=== PATIENT | male | born 1945 | race African-American/Black ===

== ENCOUNTER 2016-12-07 10:45 | Emergency (ER) | payer MEDICARE, OTHER ==
[~2016-12-07] VITALS: Ht 167.6 cm; Wt 63.0 kg
[~2016-12-07 10:45] MED LIST: AMLO5TAB22 PO; CARV12.52 PO; DICY1TAB26 PO; LEXA5TAB PO; PREV30CA36 PO
[2016-12-07 10:59] VITALS: BP 104/61; PULSE 75; RESP 16; TEMP 97.9; O2SAT 100
--- NOTE | 2016-12-07 11:02 | PD ---
HPI . felt "drunk" and coughed/vomited blood Chief Complaint: cough/vomit blood Time Seen by Provider: 11:02 Travel History International Travel<30 days: No Contact w/Intl Traveler<30days: No Traveled to known affect area: No History of Present Illness HPI 71 yr old male with tobaccoism, HTN and hx of pacemaker here with c/o feeling "drunk" and then having either a coughing up of blood that was bright red and dark coffee looking or either vomiting it. Patient says he can't exactly recall , but became concerned and called [facility] for help. Patient now tells me that he is feeling well. He denies any pain or pain at the moment of this episode. He denies any headache, dizziness or lightheaded feeling. He denies any loss of consciousness or vertigo. I asked patient if he drinks ETOH and he says he only has a beer here and there and doesn't drink daily. He does have a primary care doctor, who he cannot recall the name of. His unit assistant is Dr. Damaris Tao. At the time of examination patient denies any nausea, vomiting, chest pain, shortness of breath, abdominal pain, fever or chills. PFSH Past Medical History Heart Rhythm Problems: Yes Diminished Hearing: No Hypertension: Yes Past Surgical History Appendectomy: Yes Body Medical Devices: PACEMAKER Pacemaker: Yes Social History Alcohol Use: Yes (2/DAY) Tobacco Use: Yes (1 PPD) Substance Use: No Allergies-Medications (Allergen,Severity, Reaction): Coded Allergies: No Known Allergies (Verified , 06/17/14) Reported Meds & Prescriptions Reported Meds & Active Scripts Active Review of Systems General / Constitutional: No: Fever Eyes: No: Visual changes HENT: No: Headaches Cardiovascular: No: Chest Pain or Discomfort Respiratory: Positive: Cough, Hemoptysis, No: Shortness of Breath Gastrointestinal: Positive: Hematemesis (?), No: Abdominal Pain Genitourinary: No: Dysuria Musculoskeletal: No: Pain Skin: No Rash Neurologic: No: Weakness Psychiatric: No: Depression Endocrine: No: Polydipsia Hematologic/Lymphatic: No: Easy Bruising Physical Exam Narrative GENERAL: AAO x 3, no acute distress, Well-nourished, well-developed patient. SKIN: Warm and dry. No visible rashes or bruising. HEAD: Normocephalic and atraumatic. EYES: No scleral icterus. No injection or drainage. EOM intact, PERRLA ENT: No nasal drainage noted. Mucous membranes pink. Airway patent. Moist mucous membranes. Oropharynx without any gross abnormalities. NECK: Supple, trachea midline. No JVD. No lymphadenopathy. CARDIOVASCULAR: Regular rate and rhythm without murmurs, gallops, or rubs. RESPIRATORY: Breath sounds equally diminished bilaterally. There are rhonchi scattered throughout, right greater than left. No accessory muscle use. GASTROINTESTINAL: Abdomen soft, non-tender, nondistended. No rebound or guarding. Negative Hoffman's sign and no McBurney point tenderness. EXTREMITIES: No cyanosis or edema. No tenderness to palpation of the lower and upper extremities. BACK: Nontender without obvious deformity. No CVA tenderness. NEURO: CN II-12 intact, rivet heater strength normal b/l, UE and LE 5/5, no focal deficits PSYCH: AAO x 3, normal affect. Data Data Last Documented VS Vital Signs Date Time Temp Pulse Resp B/P Pulse Ox O2 Delivery O2 Flow Rate FiO2 12/07/16 10:59 97.9 75 16 104/61 100 Orders Complete Blood Count With Diff (12/07/16 11:10) Comprehensive Metabolic Panel (12/07/16 11:10) Prothrombin Time / Inr (Pt) (12/07/16 11:10) Act Partial Throm Time (Ptt) (12/07/16 11:10) NPO (12/07/16 11:10) Chest, Single Ap (12/07/16 ) D-Dimer (12/07/16 11:10) Ct Pulmonary Angiogram (12/07/16 12:18) Iohexol 350 Inj (Omnipaque 350 Inj) (12/07/16 13:36) Labs Laboratory Tests Test 12/07/16 11:10 White Blood Count 9.9 TH/MM3 Red Blood Count 4.28 MIL/MM3 Hemoglobin 14.3 GM/DL Hematocrit 41.2 % Mean Corpuscular Volume 96.2 FL Mean Corpuscular Hemoglobin 33.4 PG Mean Corpuscular Hemoglobin 34.7 % Concent Red Cell Distribution Width 12.9 % Platelet Count 115 TH/MM3 Mean Platelet Volume 10.0 FL Neutrophils (%) (Auto) 55.5 % Lymphocytes (%) (Auto) 24.8 % Monocytes (%) (Auto) 12.4 % Eosinophils (%) (Auto) 6.4 % Basophils (%) (Auto) 0.9 % Neutrophils # (Auto) 5.5 TH/MM3 Lymphocytes # (Auto) 2.4 TH/MM3 Monocytes # (Auto) 1.2 TH/MM3 Eosinophils # (Auto) 0.6 TH/MM3 Basophils # (Auto) 0.1 TH/MM3 CBC Comment DIFF FINAL Differential Comment Prothrombin Time 13.3 SEC Prothromb Time International 1.2 RATIO Ratio Activated Partial 28.1 SEC Thromboplast Time D-Dimer Quantitative (PE/DVT) 7.39 MG/L FEU Sodium Level 132 MEQ/L Potassium Level 5.4 MEQ/L Chloride Level 98 MEQ/L Carbon Dioxide Level 24.8 MEQ/L Anion Gap 9 MEQ/L Blood Urea Nitrogen 13 MG/DL Creatinine 0.99 MG/DL Estimat Glomerular Filtration 90 ML/MIN Rate Random Glucose 133 MG/DL Calcium Level 9.1 MG/DL Total Bilirubin 0.7 MG/DL Aspartate Amino Transf 35 U/L (AST/SGOT) Alanine Aminotransferase 45 U/L (ALT/SGPT) Alkaline Phosphatase 66 U/L Total Protein 7.8 GM/DL Albumin 3.5 GM/DL MDM Medical Decision Making Medical Screen Exam Complete: Yes Emergency Medical Condition: Yes Medical Record Reviewed: Yes Differential Diagnosis CHF, pneumonia, upper GI bleed, esophageal varices, pulmonary emboli Narrative Course 71-year-old male here with complaints of feeling drunk and having some bright red blood per either vomiting or coughing as well as coffee-ground emesis. IV access was obtained. Labs have been ordered. Chest x-ray also ordered. I am initially holding fluids at this point, as patient could have some CHF, which I do not want to worsen. CXR negative for acute process. Last Impressions Chest X-Ray 12/07/16 0000 Signed Impressions: Service Date/Time: November 11:17 - CONCLUSION: No acute cardiopulmonary abnormality is identified. Nitin Koenig MD Laboratory Tests Test 12/07/16 11:10 White Blood Count 9.9 TH/MM3 Red Blood Count 4.28 MIL/MM3 Hemoglobin 14.3 GM/DL Hematocrit 41.2 % Mean Corpuscular Volume 96.2 FL Mean Corpuscular Hemoglobin 33.4 PG Mean Corpuscular Hemoglobin 34.7 % Concent Red Cell Distribution Width 12.9 % Platelet Count 115 TH/MM3 Mean Platelet Volume 10.0 FL Neutrophils (%) (Auto) 55.5 % Lymphocytes (%) (Auto) 24.8 % Monocytes (%) (Auto) 12.4 % Eosinophils (%) (Auto) 6.4 % Basophils (%) (Auto) 0.9 % Neutrophils # (Auto) 5.5 TH/MM3 Lymphocytes # (Auto) 2.4 TH/MM3 Monocytes # (Auto) 1.2 TH/MM3 Eosinophils # (Auto) 0.6 TH/MM3 Basophils # (Auto) 0.1 TH/MM3 CBC Comment DIFF FINAL Differential Comment Prothrombin Time 13.3 SEC Prothromb Time International 1.2 RATIO Ratio Activated Partial 28.1 SEC Thromboplast Time D-Dimer Quantitative (PE/DVT) 7.39 MG/L FEU Sodium Level 132 MEQ/L Potassium Level 5.4 MEQ/L Chloride Level 98 MEQ/L Carbon Dioxide Level 24.8 MEQ/L Anion Gap 9 MEQ/L Blood Urea Nitrogen 13 MG/DL Creatinine 0.99 MG/DL Estimat Glomerular Filtration 90 ML/MIN Rate Random Glucose 133 MG/DL Calcium Level 9.1 MG/DL Total Bilirubin 0.7 MG/DL Aspartate Amino Transf 35 U/L (AST/SGOT) Alanine Aminotransferase 45 U/L (ALT/SGPT) Alkaline Phosphatase 66 U/L Total Protein 7.8 GM/DL Albumin 3.5 GM/DL labs reviewed: D dimer significantly elevated, CTA ordered CTA negative for PE, but shows two small lung nodules and recommends 6 mt f/u. This has been discussed with the patient and also included in his discharge instructions. Patient has a slightly elevated potassium. Is currently 5.4. He is on an GIOVANY inhibitor, which can cause hyperkalemia. I've discussed this with the patient, and he tells me that his potassium is always around that level and that his primary care doctor had told him to stay away from potassium rich foods. I have also reiterated similar to him. I recommended he have this rechecked within the next 2 days. Case discussed with my attending Dr. Betancourt. We recommend outpatient f/u. Patient advised to return to ed for any worsening of his condition. 1416: Prior to discharge patient reports that he is feeling well. He did use the ambulance to get here, and does not have any family members locally. Case management will help arrange transportation back to his home. Patient verbalized understanding of instructions, questions were answered, and thanked me for their care. I advised them if their condition worsens, please return to the nearest emergency room for further care. Diagnosis Primary Impression: Cough with hemoptysis Additional Impression: Hyperkalemia Patient Instructions: General Instructions Additional Instructions: You have 2 small pulmonary nodules that will need to have a follow-up CT scan in 6 months. Please discuss this with your primary care provider. Please follow up with your primary care doctor for recheck of your potassium levels. Please return to emergency department if your symptoms return or worsen. Follow up with your primary care provider. Try to do this in the next few days. Med/Other Pt SpecificInfo: No Change to Meds Disposition: 01 DISCHARGE HOME Condition: Stable Wendie Lynn Dec 07, 2016 11:02 Wendie Lynn Dec 07, 2016 11:02
[2016-12-07 11:43] LABS: AUTOMATED NEUTROPHIL # 5.5 TH/MM3 (1.8-7.7); BASOPHIL # 0.1 TH/MM3 (0-0.2); BASOPHIL % 0.9 % (0.0-2.0); EOSINOPHIL # 0.6 TH/MM3 (0-0.4); EOSINOPHIL % 6.4 % (0.0-4.0); HEMATOCRIT 41.2 % (39.0-51.0); HEMO FLAGS DIFF FINAL; LYMPH % 24.8 % (9.0-44.0); LYMPHOCYTE # 2.4 TH/MM3 (1.0-4.8); MEAN CELL VOLUME 96.2 FL (80.0-100.0); MEAN CORPUSCULAR HEMOGLOBIN 33.4 PG (27.0-34.0); MEAN CORPUSCULAR HGB CONC 34.7 % (32.0-36.0); MONO % 12.4 % (0.0-8.0); NEUT % 55.5 % (16.0-70.0); PLATELET COUNT 115 TH/MM3 (150-450); RED BLOOD COUNT 4.28 MIL/MM3 (4.50-5.90); RED CELL DISTRIBUTION WIDTH 12.9 % (11.6-17.2); WHITE BLOOD COUNT 9.9 TH/MM3 (4.0-11.0)
[2016-12-07 11:54] LABS: ALT (GPT) 45 U/L (12-78); ANION GAP 9 MEQ/L (5-15); AST (GOT) 35 U/L (15-37); BICARBONATE 24.8 MEQ/L (21.0-32.0); BLOOD UREA NITROGEN 13 MG/DL (7-18); CHLORIDE 98 MEQ/L (98-107); GLOMERULAR FILTRATION RATE 90 ML/MIN (>89); POTASSIUM 5.4 MEQ/L (3.5-5.1); SODIUM (NA) 132 MEQ/L (136-145)
[2016-12-07 11:56] LABS: ALKALINE PHOSPHATASE 66 U/L (45-117); TOTAL BILIRUBIN ADULT 0.7 MG/DL (0.2-1.0)
--- NOTE | 2016-12-07 11:58 | RADRPT ---
EXAM DATE/TIME: 12/07/2016 11:17 [facility] COMPARISON: No previous studies available for comparison. INDICATIONS : Cough. MEDICAL HISTORY : None. SURGICAL HISTORY : Pacemaker. ENCOUNTER: Initial ACUITY: 1 day PAIN SCORE: 0/10 LOCATION: Bilateral chest FINDINGS: Portable AP view of the chest demonstrates a normal-sized cardiac silhouette. No effusion, consolidat ion, or pneumothorax is visualized. The bones and soft tissues demonstrate no acute abnormality. Left chest wall cardiac pacing device/AICD is present. EKG leads overlie the patient. CONCLUSION: No acute cardiopulmonary abnormality is identified. Nitin Koenig MD on December 07, 2016 at 11:53 Board Certified Radiologist. This report was verified electronically.
[2016-12-07 12:02] LABS: APTT (PATIENT) 28.1 SEC (24.3-30.1); INTERNATIONAL NORMALIZED RATIO 1.2 RATIO; PROTHROMBIN TIME - PATIENT 13.3 SEC (9.8-11.6)
[2016-12-07] MEDS ORDERED: IOHEXOL 350 MG/ML 10 ML VIAL (for RAD DIAG) IV ONE (13:36)
--- NOTE | 2016-12-07 14:03 | RADRPT ---
EXAM DATE/TIME: 12/07/2016 12:55 [facility] COMPARISON: No previous studies available for comparison. INDICATIONS : Shortness of breath . IV CONTRAST: 75 cc Omnipaque 350 (iohexol) IV RADIATION DOSE: 23.24 CTDIvol (mGy) MEDICAL HISTORY : Cardiovascular disease. Hypertension. SURGICAL HISTORY : Pacemaker. Appendectomy. ENCOUNTER: Initial ACUITY: 1 day PAIN SCALE: 0/10 LOCATION: chest TECHNIQUE: Volumetric scanning of the chest was performed using a pulmonary embolism protocol MIP images were re constructed. Using automated exposure control and adjustment of the mA and/or kV according to patien t size, radiation dose was kept as low as reasonably achievable to obtain optimal diagnostic quality images. FINDINGS: No filling defects are identified to suggest pulmonary embolus. There is a 5 mm noncalcified nodule in the right upper lobe on image 40 and a 3 mm noncalcified nodul e also in the right upper lobe on image 55. There is mild emphysema. No pleural or pericardial effusion. There is a borderline enlarged subcarinal lymph node at 1 cm. No other adenopathy. Calcified granuloma present left lower lobe. Pacer leads present in the right atrium and right ventri ashkan and coronary sinus including a lead passing up through the inferior vena cava. Moderate coronary calcifications. No acute findings in the upper abdomen. Slightly lobulated liver characteristic of cirrhosis. CONCLUSION: 1. Negative for pulmonary embolus. 2. 5 mm and 3 mm nodule in right lung, noncalcified. Followup chest CT recommended in 6 months. 3. Mild emphysema. Chip Heredia MD on December 07, 2016 at 13:51 Board Certified Radiologist. This report was verified electronically.
[2016-12-07 14:29] VITALS: BP 129/79
== END 2016-12-07 14:48 | disposition home or self-care (01) ==
LOC: NEPC 10:45
DX: R04.2 Hemoptysis (principal); R05 Cough; E87.5 Hyperkalemia; I10 Essential (primary) hypertension; F17.210 Nicotine dependence, cigarettes, uncomplicated; Z95.0 Presence of cardiac pacemaker
CPT/HCPCS: 71010; 71275; 80053; 85025; 85379; 85610; 85730; 99284; Q9967

== ENCOUNTER 2017-01-11 12:41 | Emergency (ER) | payer MEDICARE, OTHER ==
[~2017-01-11] VITALS: Ht 167.6 cm; Wt 62.5 kg
[2017-01-11 12:45] VITALS: BP 173/89; PULSE 85; RESP 16; TEMP 98.2
--- NOTE | 2017-01-11 13:28 | PD ---
HPI Chief Complaint: General Weakness Time Seen by Provider: 13:13 Travel History International Travel<30 days: No Contact w/Intl Traveler<30days: No Traveled to known affect area: No History of Present Illness HPI This patient presents to the emergency room with a very strange story. He feels fine and has no complaint whatsoever. He says that he received a call one week ago from someone at the hospital who told him to come to the emergency room January 11. He has no idea who called or why he was advised to come to the emergency room. My guess is he got confused and he actually has an outpatient appointment for something scheduled, may be a lab or imaging study. In any event we called his family physician and they are out on lunch break. As noted he has no complaint and feels fine. Symptoms severity is nonexistent PFS Past Medical History Heart Rhythm Problems: Yes Cardiovascular Problems: Yes (HTN) Diabetes: No Diminished Hearing: No Hypertension: Yes Tetanus Vaccination: Unknown Influenza Vaccination: Yes Past Surgical History Appendectomy: Yes Body Medical Devices: PACEMAKER Cardiac Surgery: Yes (pacemaker defib) Pacemaker: Yes Social History Alcohol Use: Yes (occassional) Tobacco Use: Yes (1 ppd) Substance Use: No Allergies-Medications (Allergen,Severity, Reaction): Coded Allergies: No Known Allergies (Verified , 01/11/17) Reported Meds & Prescriptions Reported Meds & Active Scripts Active Review of Systems HENT: No: Headaches Cardiovascular: No: Chest Pain or Discomfort Respiratory: No: Cough Physical Exam Narrative CARDIOVASCULAR: Regular rate and rhythm without murmur. Extremities showed no edema or varicosities. RESPIRATORY: Respiratory effort unlabored, no retractions or use of accessory muscles. Breath sounds are clear and symmetric. GASTROINTESTINAL: Abdomen soft, non-tender, nondistended. Positive bowel sounds. No hepato-splenomegaly, or palpable masses. No guarding. Data Data Last Documented VS Vital Signs Date Time Temp Pulse Resp B/P Pulse Ox O2 Delivery O2 Flow Rate FiO2 01/11/17 12:55 96 Room Air 01/11/17 12:45 98.2 85 16 173/89 [facility] Medical Decision Making Medical Screen Exam Complete: Yes Emergency Medical Condition: Yes Medical Record Reviewed: Yes Differential Diagnosis Patient in the wrong location, supposed to be getting outpatient study, well exam Narrative Course see above Diagnosis Primary Impression: Wellness examination Additional Instructions: Patient is to call the office of his family physician and find out if he is scheduled for outpatient studies and where he is supposed to be but it is certainly not the emergency room Med/Other Pt SpecificInfo: Other Disposition: 01 DISCHARGE HOME Condition: Stable Reece Sepulveda MD Jan 11, 2017 13:28
== END 2017-01-11 13:36 | disposition home or self-care (01) ==
LOC: PHED 12:41
DX: R53.1 Weakness (principal)
CPT/HCPCS: 99282

== ENCOUNTER 2017-05-31 17:32 | Inpatient (IN) | payer MEDICARE, MEDICAID ==
[~2017-05-31] VITALS: Ht 162.6 cm; Wt 69.6 kg
[~2017-05-31 17:32] MED LIST changes: -AMLO5TAB22 PO; +AZIT250T3 PO; -CARV12.52 PO; -DICY1TAB26 PO; -LEXA5TAB PO; -PREV30CA36 PO
--- NOTE | 2017-05-31 17:39 | PD ---
HPI Chief Complaint: diarrhea Time Seen by Provider: 17:38 Travel History International Travel<30 days: No Contact w/Intl Traveler<30days: No Traveled to known affect area: No History of Present Illness HPI 71-year-old male came to the emergency room brought by EMS for multiple episodes of diarrhea since yesterday. Today he was dizzy and lightheaded and almost passed out. He called 911 and was brought in here. Vital signs are stable. Patient denies of any abdominal pain. No history of nausea vomiting. Vital signs were stable. He is awake and answering questions appropriately although it's difficult to understand him to it. There is some language barrier. Patient has been taking milk of magnesia and mag citrate. He says that his stool is completely black since today. PFS Past Medical History Narrative Medical List of his past medical, surgical, social and family history is reviewed from the nursing note. Heart Rhythm Problems: Yes Cardiovascular Problems: Yes (HTN) Diabetes: No Diminished Hearing: No Hypertension: Yes Past Surgical History Appendectomy: Yes Body Medical Devices: PACEMAKER Cardiac Surgery: Yes (pacemaker defib) Pacemaker: Yes Social History Alcohol Use: Yes (occassional) Tobacco Use: Yes (1 ppd) Substance Use: No Allergies-Medications (Allergen,Severity, Reaction): Coded Allergies: No Known Allergies (Verified Allergy, Unknown, 05/31/17) Comments No known drug allergies. Reported Meds & Prescriptions Reported Meds & Active Scripts Active Reported Proair Hfa 8.5 GM Inh (Albuterol Sulfate) 90 Mcg/Act Aer 2 Puff INH Q6H PRN 108 mcg/actuation Lisinopril 40 Mg Tab 40 Mg PO DAILY Carvedilol 25 Mg Tab 25 Mg PO BID Narrative Medication List of his past medical, surgical, social and family history is reviewed from the nursing note. Review of Systems Except as stated in HPI: all other systems reviewed are Neg Gastrointestinal: Positive: Diarrhea Physical Exam Narrative GENERAL: Awake, alert, no obvious distress SKIN: Focused skin assessment warm/dry. HEAD: Atraumatic. Normocephalic. EYES: Pupils equal and round. No scleral icterus. No injection or drainage. ENT: No nasal bleeding or discharge. Mucous membranes pink and moist. NECK: Trachea midline. No JVD. CARDIOVASCULAR: Regular rate and rhythm. No murmur appreciated. RESPIRATORY: No accessory muscle use. Clear to auscultation. Breath sounds equal bilaterally. GASTROINTESTINAL: Abdomen soft, non-tender, distended. Hepatic and splenic margins not palpable. MUSCULOSKELETAL: No obvious deformities. No clubbing. No cyanosis. No edema. NEUROLOGICAL: Awake and alert. No obvious cranial nerve deficits. Motor grossly within normal limits. Normal speech. PSYCHIATRIC: Appropriate mood and affect; insight and judgment normal. Data Data Last Documented VS Orders Orders Complete Blood Count With Diff (05/31/17 17:45) Comprehensive Metabolic Panel (05/31/17 17:45) Lipase (05/31/17 17:45) Ct Abd/Pel W/O Iv Contrast (05/31/17 17:45) Iv Access Insert/Monitor (05/31/17 17:45) Ecg Monitoring (05/31/17 17:45) Oximetry (05/31/17 17:45) Sodium Chlor 0.9% 1000 Ml Inj (Ns 1000 M (05/31/17 17:45) Sodium Chloride 0.9% Flush (Ns Flush) (05/31/17 17:45) C Diff Toxin Pcr (05/31/17 17:45) Type And Screen (05/31/17 17:45) Npo After Midnight W/ Po Meds (05/31/17 Dinner) Admit Order (Ed Use Only) (05/31/17 19:04) Labs Laboratory Tests Test 05/31/17 18:20 White Blood Count 12.9 TH/MM3 Red Blood Count 2.87 MIL/MM3 Hemoglobin 8.1 GM/DL Hematocrit 24.2 % Mean Corpuscular Volume 84.3 FL Mean Corpuscular Hemoglobin 28.1 PG Mean Corpuscular Hemoglobin Concent 33.4 % Red Cell Distribution Width 22.0 % Platelet Count 100 TH/MM3 Mean Platelet Volume 9.8 FL Neutrophils (%) (Auto) 72.5 % Lymphocytes (%) (Auto) 14.8 % Monocytes (%) (Auto) 8.4 % Eosinophils (%) (Auto) 3.6 % Basophils (%) (Auto) 0.7 % Neutrophils # (Auto) 9.4 TH/MM3 Lymphocytes # (Auto) 1.9 TH/MM3 Monocytes # (Auto) 1.1 TH/MM3 Eosinophils # (Auto) 0.5 TH/MM3 Basophils # (Auto) 0.1 TH/MM3 CBC Comment DIFF FINAL Differential Comment Blood Urea Nitrogen 25 MG/DL Creatinine 0.88 MG/DL Random Glucose 167 MG/DL Total Protein 7.5 GM/DL Albumin 3.2 GM/DL Calcium Level 8.2 MG/DL Alkaline Phosphatase 62 U/L Aspartate Amino Transf (AST/SGOT) 38 U/L Alanine Aminotransferase (ALT/SGPT) 43 U/L Total Bilirubin 0.3 MG/DL Sodium Level 130 MEQ/L Potassium Level 4.6 MEQ/L Chloride Level 98 MEQ/L Carbon Dioxide Level 22.8 MEQ/L Anion Gap 9 MEQ/L Estimat Glomerular Filtration Rate 103 ML/MIN Lipase 202 U/L [facility] Medical Decision Making Medical Screen Exam Complete: Yes Emergency Medical Condition: Yes Medical Record Reviewed: Yes Differential Diagnosis Diverticulitis, acute appendicitis, colitis Narrative Course 6:[address] scan of the abdomen and pelvis is negative for any acute changes. Patient has slight leukocytosis. He is anemic but does not require blood transfusion. However after trending the labs it's noticed that this is the lowest his hemoglobin has been. Given the black stool that he is passing patient should require admission and be seen by GI. Chemistry pending. 6:56 PM I just discussed the case with Dr. Mathews and he wants the patient to be nothing by mouth after midnight and they will try to do an EGD tomorrow. Awaiting for the hospitalist to call back. Procedures EKG Prior to Arrival: No [facility] Point of Care Internal Pos. & Neg. Controls: Passed Fecal Specimen Occult Blood: Positive Physician Communication Physician Communication Dr. Mathews Diagnosis Primary Impression: GI bleed Qualified Codes: K92.2 - Gastrointestinal hemorrhage, unspecified Additional Impression: Symptomatic anemia Admitting Information Admitting Physician Requests: Admit Scripts Pantoprazole (Protonix) 40 Mg Tab 40 MG PO BID for Reflux, #60 TAB 0 Refills Prov: Yonatan Andrews MD, R3 06/04/17 Jack Torres MD May 31, 2017 17:39
[2017-05-31 17:44] VITALS: BP 131/61; PULSE 88; RESP 18; TEMP 98.4
[2017-05-31] MEDS ORDERED: SODIUM CHLORIDE 0.9% FLUSH 10 ML FLUSH IV FLUSH PRN ×2 (17:45→23:00)
[2017-05-31] MEDS ORDERED: SODIUM CHLOR 0.9% 1000 ML INJ 1,000 ML IV SCH (17:45)
[2017-05-31 18:02] VITALS: O2SAT 98
--- NOTE | 2017-05-31 18:14 | RADRPT ---
EXAM DATE/TIME: 05/31/2017 17:50 [facility] COMPARISON: No previous studies available for comparison. INDICATIONS : Patient complains of abdominal pain. ORAL CONTRAST: No oral contrast ingested. RADIATION DOSE: 6.88 CTDIvol (mGy) MEDICAL HISTORY : Cardiovascular disease. Hypertension. SURGICAL HISTORY : Appendectomy. Pacemaker. ENCOUNTER: Initial ACUITY: 1 day PAIN SCALE: 7/10 LOCATION: abdomen TECHNIQUE: Volumetric scanning of the abdomen and pelvis was performed. Using automated exposure control and ad justment of the mA and/or kV according to patient size, radiation dose was kept as low as reasonably achievable to obtain optimal diagnostic quality images. DICOM format image data is available electro nically for review and comparison. FINDINGS: Lung bases are clear. The liver has a slightly nodular appearance suggesting cirrhosis. Spleen, adrenals, kidneys and pancr eas unremarkable. No bowel obstruction. No free air or free fluid. Pacer lead extends cephalad from t he right femoral vein to the right atrium. No acute bony abnormalities. CONCLUSION: 1. No acute findings on CT abdomen pelvis performed without contrast. 2. Liver cirrhosis without ascites. 3. Pacer leads as above. Chip Heredia MD on May 31, 2017 at 18:08 Board Certified Radiologist. This report was verified electronically.
[2017-05-31 18:41] LABS: AUTOMATED NEUTROPHIL # 9.4 TH/MM3 (1.8-7.7); BASOPHIL # 0.1 TH/MM3 (0-0.2); BASOPHIL % 0.7 % (0.0-2.0); EOSINOPHIL # 0.5 TH/MM3 (0-0.4); EOSINOPHIL % 3.6 % (0.0-4.0); HEMATOCRIT 24.2 % (39.0-51.0); HEMO FLAGS DIFF FINAL; LYMPH % 14.8 % (9.0-44.0); LYMPHOCYTE # 1.9 TH/MM3 (1.0-4.8); MEAN CELL VOLUME 84.3 FL (80.0-100.0); MEAN CORPUSCULAR HEMOGLOBIN 28.1 PG (27.0-34.0); MEAN CORPUSCULAR HGB CONC 33.4 % (32.0-36.0); MONO % 8.4 % (0.0-8.0); NEUT % 72.5 % (16.0-70.0); PLATELET COUNT 100 TH/MM3 (150-450); RED BLOOD COUNT 2.87 MIL/MM3 (4.50-5.90); WHITE BLOOD COUNT 12.9 TH/MM3 (4.0-11.0)
[2017-05-31 18:58] LABS: ANION GAP 9 MEQ/L (5-15); AST (GOT) 38 U/L (15-37); BICARBONATE 22.8 MEQ/L (21.0-32.0); BLOOD UREA NITROGEN 25 MG/DL (7-18); CHLORIDE 98 MEQ/L (98-107); GLOMERULAR FILTRATION RATE 103 ML/MIN (>89); POTASSIUM 4.6 MEQ/L (3.5-5.1); SODIUM (NA) 130 MEQ/L (136-145)
[2017-05-31 18:59] LABS: ALT (GPT) 43 U/L (12-78)
[2017-05-31 19:01] LABS: ALKALINE PHOSPHATASE 62 U/L (45-117); TOTAL BILIRUBIN ADULT 0.3 MG/DL (0.2-1.0)
--- NOTE | 2017-05-31 20:35 | HHI.HP ---
HPI Service Family Medicine Primary Care Physician Unknown Admission Diagnosis GI bleed, symptomatically anemia Diagnoses: International Travel<30 Days: No Contact w/Intl Traveler<30days: No Known Affected Area: No History of Present Illness This is a 71-year-old man with a history of diverticulosis who presents with melena. Patient is a poor historian and is not able to answer certain questions. Patient began interview by stating that earlier this afternoon he felt like he was about to faint-noted dizziness and felt like he couldn't get up. His lower belly felt stiff and painful. The pain improves with eating; this abdominal pain has been going on for a while. He then states that 6 months ago, he was feeling constipated and took a stool softener. He then threw up blood. Today he states that the same thing happened and that he decided to drink milk after coughing up blood. He states that he then started to have diarrhea which appeared black. Stool was hemoccult positive in the ED. Patient also endorses chronic cough, has smoked at least 40 pack years. Drinks 2-3 cans of beer daily. 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 Also reports that he sees a GI doctor. Patient was seen in the ED in November 2016 for an episode of cough with hemoptysis. Besides this complaint, he was otherwise asymptomatic. CTA showed 2 small lung nodules and recommended 6 month follow-up. Patient was discharged with follow-up instructions. Patient was at the ED in 2014 for complaint of 1 day of left abdominal pain. CT scan of the abdomen with contrast showed ascites , diverticula, and thickening of the gallbladder. Patient was advised to decrease alcohol consumption, prescribed with Bentyl and Prevacid, and told to follow-up with his primary care physician. Patient states that he is switching primary care physicians, was not able to name 1. Review of Systems Constitutional: DENIES: Diaphoretic episodes, Fever Endocrine: DENIES: Polydipsia, Polyuria Eyes: DENIES: Eye inflammation, Vision loss Ears, nose, mouth, throat: DENIES: Hearing loss, Throat pain Respiratory: DENIES: Shortness of breath Cardiovascular: DENIES: Chest pain, Syncope Gastrointestinal: DENIES: Anorexia Genitourinary: DENIES: Urinary incontinence, Dysuria Musculoskeletal: DENIES: Muscle aches Integumentary: DENIES: Abnormal pigmentation Hematologic/lymphatic: DENIES: Bruising Immunologic/allergic: DENIES: Eczema Neurologic: DENIES: Headache, Poor Balance Past Family Social History Past Medical History Hypertension History of Diverticulosis Pacemaker Liver cirrhosis Past Surgical History Pacemaker placement Reported Medications Lisinopril 40 mg daily Carvedilol 25 mg BID Allergies: Coded Allergies: No Known Allergies (Verified Allergy, Unknown, 05/31/17) Family History Mom: Unknown Dad: Unknown Social History Patient is originally from the [facility]. Lives alone in a mobile home, does not work Smokes one pack per day Drinks 2-3 beers (cans) every day No other drugs Physical Exam Vital Signs Vital Signs Date Time Temp Pulse Resp B/P (MAP) Pulse Ox O2 Delivery O2 Flow Rate FiO2 05/31/17 18:02 98 Room Air 05/31/17 17:44 98.4 88 18 131/61 (84) Room Air Physical Exam GENERAL: This is a elderly black man asking comfortably in bed. He has a heavy accent. SKIN: Cool and dry. HEAD: Atraumatic. Normocephalic. EYES: Extraocular motions intact. No scleral icterus. ENT: Throat without erythema or ulcerations. Mucous membranes pink and moist. Uvula midline. Airway patent. NECK: Trachea midline. No JVD. CARDIOVASCULAR: Regular rate and rhythm. RESPIRATORY: Breath sounds equal bilaterally. Occasional speech for a wheeze sitting heard in the mid-lower lung lobes GASTROINTESTINAL: Abdomen soft, non-tender, nondistended. No hepato-splenomegaly , or palpable masses. No guarding. MUSCULOSKELETAL: Extremities without clubbing, cyanosis, or edema. No calf tenderness. NEUROLOGICAL: Awake and alert. Motor and sensory grossly within normal limits. Laboratory Laboratory Tests Test 05/31/17 18:20 White Blood Count 12.9 Red Blood Count 2.87 Hemoglobin 8.1 Hematocrit 24.2 Mean Corpuscular Volume 84.3 Mean Corpuscular Hemoglobin 28.1 Mean Corpuscular Hemoglobin Concent 33.4 Red Cell Distribution Width 22.0 Platelet Count 100 Mean Platelet Volume 9.8 Neutrophils (%) (Auto) 72.5 Lymphocytes (%) (Auto) 14.8 Monocytes (%) (Auto) 8.4 Eosinophils (%) (Auto) 3.6 Basophils (%) (Auto) 0.7 Neutrophils # (Auto) 9.4 Lymphocytes # (Auto) 1.9 Monocytes # (Auto) 1.1 Eosinophils # (Auto) 0.5 Basophils # (Auto) 0.1 CBC Comment DIFF FINAL Differential Comment Blood Urea Nitrogen 25 Creatinine 0.88 Random Glucose 167 Total Protein 7.5 Albumin 3.2 Calcium Level 8.2 Alkaline Phosphatase 62 Aspartate Amino Transf (AST/SGOT) 38 Alanine Aminotransferase (ALT/SGPT) 43 Total Bilirubin 0.3 Sodium Level 130 Potassium Level 4.6 Chloride Level 98 Carbon Dioxide Level 22.8 Anion Gap 9 Estimat Glomerular Filtration Rate 103 Lipase 202 Result Diagram: 05/31/17 1820 05/31/17 1820 Imaging Last Impressions Abdomen/Pelvis CT 05/31/17 1745 Signed Impressions: Service Date/Time: May 17:50 - CONCLUSION: 1. No acute findings on CT abdomen pelvis performed without contrast. 2. Liver cirrhosis without ascites. 3. Pacer leads as above. Chip Heredia MD Chest X-Ray 05/31/17 0000 Signed Impressions: Service Date/Time: , May 31, 2017 23:19 - CONCLUSION: No acute cardiopulmonary disease identified. Cesar Skaggs MD Course In the ED, patient received 1 bolus of normal saline. Per ED note, ED physician spoke with Dr. Mathews.Patient to be nothing by mouth after midnight, plan for EGD tomorrow. Caprini VTE Risk Assessment Caprini VTE Risk Assessment: Mod/High Risk (score >= 2) Assessment and Plan Assessment and Plan 71-year-old male with a history of liver cirrhosis and diverticulosis who presents with GI bleed. Hemoccult positive in the ED, vitals within normal limits for hypertension (150/85), hemoglobin 8.1 (baseline appears to be around 13). Due to history of smoking, chronic daily alcohol use, and melena, suspicion for upper source of GI bleed high. GI consulted, plan for procedure tomorrow. Patient placed on IV Protonix, nothing by mouth, and SCDs. Code Status Full Discussed Condition With Dr. Torres Problem List: (1) GI bleed ICD Codes: K92.2 - Gastrointestinal hemorrhage, unspecified Status: Acute Plan: Hemoglobin on admission 8.1 Per patient history, one episode of melena today after episode of hemoptysis Differential: Likely upper GI bleed secondary to gastritis/duodenitis/ esophagitis v ulceration v varices v angiodysplasia GI consulted, anticipate EGD procedure tomorrow Nothing by mouth Protonic IV 40 mg twice a day SCDs only Order hemoglobin and hematocrit @midnight Order coagulation profile monitor CBCs daily (2) Cough with hemoptysis ICD Codes: R04.2 - Hemoptysis Status: Acute Plan: 11/2016 CTA showed 2 small lung nodules Significant smoking history Differential: Upper GI bleed versus lung cancer versus pulmonary vascular disease Order chest x-ray, will assess for any changes from previous imaging See above plan for GI bleed (3) Hypertension ICD Codes: I10 - Essential (primary) hypertension Plan: Resume home meds lisinopril and amlodipine (4) Anemia ICD Codes: D64.9 - Anemia, unspecified Plan: Microcytic, hemoglobin 8.1 -Daily CBC -Hemoglobin and hematocrit at midnight - Iron panel, ferritin ordered -See above plan, continue to monitor (5) Smoking history ICD Codes: Z87.891 - Personal history of nicotine dependence Plan: Nicotine gum PRN (6) FEN Plan: Fluids: Normal saline 105 MLS per hour Electrolytes: As needed Nutrition: Nothing by mouth GI prophylaxis IV Protonix twice a day DVT prophylaxis: SCDs only Physician Certification 2 Midnight Certification Type: Admission for Inpatient Services Order for Inpatient Services The services are ordered in accordance with Medicare regulations or non- Medicare payer requirements, as applicable. In the case of services not specified as inpatient-only, they are appropriately provided as inpatient services in accordance with the 2-midnight benchmark. Estimated LOS (days): 3 3 days is the estimated time the patient will need to remain in the hospital, assuming treatment plan goals are met and no additional complications. Post-Hospital Plan: Home Problem Qualifiers (1) GI bleed: Qualified Codes: K92.2 - Gastrointestinal hemorrhage, unspecified (2) Anemia: Qualified Codes: D64.9 - Anemia, unspecified Malini Gray MD R1 May 31, 2017 20:35
[2017-05-31] MEDS ORDERED: LISI40TA PO (21:09)
[2017-05-31] MEDS ORDERED: CARV25TA PO (21:09)
[2017-05-31] MEDS ORDERED: ALBUAER3 INH (21:09)
[2017-05-31] MEDS ORDERED: LACTULOSE SYRUP 20 GM/30 ML CUP PO PRN (23:00)
[2017-05-31] MEDS ORDERED: NALOXONE HCL 0.4 MG/ML AMP IV PUSH PRN (23:00)
[2017-05-31] MEDS ORDERED: BISACODYL 10 MG SUPP RECTAL PRN (23:00)
[2017-05-31] MEDS ORDERED: ONDANSETRON HCL 4 MG/2 ML VIAL IVP PRN (23:00)
[2017-05-31 23:22] VITALS: PULSE 85
--- NOTE | 2017-05-31 23:48 | RADRPT ---
EXAM DATE/TIME: 05/31/2017 23:19 [facility] COMPARISON: CHEST SINGLE AP, December 07, 2016, 11:17. INDICATIONS : Shortness of breath MEDICAL HISTORY : None. SURGICAL HISTORY : Pacemaker. ENCOUNTER: Initial ACUITY: 1 day PAIN SCORE: 6/10 LOCATION: Bilateral chest FINDINGS: Single AP view of the chest. AICD in place. The lungs are clear. Cardiomediastinal silhouette within normal limits. No evidence of pleural effusion or pneumothorax. CONCLUSION: No acute cardiopulmonary disease identified. Cesar Skaggs MD on May 31, 2017 at 23:46 Board Certified Radiologist. This report was verified electronically.
[2017-06-01] VITALS (15 sets, daily range): BP systolic 116–155; BP diastolic 60–74; PULSE 74–87; RESP 18–20; TEMP 97.9–98.9; O2SAT 96–100
[2017-06-01] MEDS ORDERED: MORPHINE SULFATE 2 MG/ML INJ IV PRN (00:30)
[2017-06-01 00:49] LABS: REVIEW FLAG FINAL
[2017-06-01 00:52] LABS: APTT (PATIENT) 24.9 SEC (24.3-30.1); INTERNATIONAL NORMALIZED RATIO 1.2 RATIO; PROTHROMBIN TIME - PATIENT 12.2 SEC (9.8-11.6)
[2017-06-01] MEDS: PANTOPRAZOLE SODIUM 40 MG VIAL IV PUSH SCH ×3 (00:57→22:42)
[2017-06-01] MEDS: SODIUM CHLOR 0.9% 1000 ML INJ 1,000 ML IV SCH ×3 (00:57→17:24)
[2017-06-01] MEDS: SODIUM CHLORIDE 0.9% FLUSH 10 ML FLUSH IV FLUSH SCH ×3 (00:58→21:34)
[2017-06-01 02:23] LABS: AUTOMATED NEUTROPHIL # 6.3 TH/MM3 (1.8-7.7); BASOPHIL # 0.1 TH/MM3 (0-0.2); EOSINOPHIL # 0.4 TH/MM3 (0-0.4); EOSINOPHIL % 4.1 % (0.0-4.0); HEMATOCRIT 21.7 % (39.0-51.0); HEMO FLAGS DIFF FINAL; LYMPH % 22.5 % (9.0-44.0); LYMPHOCYTE # 2.3 TH/MM3 (1.0-4.8); MEAN CELL VOLUME 82.4 FL (80.0-100.0); MEAN CORPUSCULAR HEMOGLOBIN 28.9 PG (27.0-34.0); MEAN CORPUSCULAR HGB CONC 35.1 % (32.0-36.0); MONO % 10.6 % (0.0-8.0); NEUT % 61.8 % (16.0-70.0); PLATELET COUNT 109 TH/MM3 (150-450); RED BLOOD COUNT 2.64 MIL/MM3 (4.50-5.90); RED CELL DISTRIBUTION WIDTH 21.6 % (11.6-17.2); WHITE BLOOD COUNT 10.2 TH/MM3 (4.0-11.0)
[2017-06-01 02:59] LABS: ALT (GPT) 36 U/L (12-78); ANION GAP 7 MEQ/L (5-15); AST (GOT) 28 U/L (15-37); BICARBONATE 24.2 MEQ/L (21.0-32.0); BLOOD UREA NITROGEN 17 MG/DL (7-18); CHLORIDE 101 MEQ/L (98-107); GLOMERULAR FILTRATION RATE 149 ML/MIN (>89); POTASSIUM 4.2 MEQ/L (3.5-5.1); SODIUM (NA) 132 MEQ/L (136-145)
[2017-06-01 03:02] LABS: ALKALINE PHOSPHATASE 57 U/L (45-117); TOTAL BILIRUBIN ADULT 0.2 MG/DL (0.2-1.0)
[2017-06-01] MEDS ORDERED: NICOTINE 4 MG/GUM CHEW PRN (03:15)
[2017-06-01 03:39] LABS: FERRITIN 25 NG/ML (26-388)
[2017-06-01] MEDS ORDERED: FLUMAZENIL 0.5 MG/5 ML VIAL IV PUSH PRN ×3 (08:45→13:45)
[2017-06-01] MEDS ORDERED: LORazepam 1 MG TAB PO PRN (08:45)
[2017-06-01] MEDS ORDERED: LORazepam 2 MG TAB PO PRN (08:45)
[2017-06-01] MEDS ORDERED: RESP: ALBUTEROL 2.5 MG/IPRATROPIUM 0.5 MG NEB (PRN) NEB (09:00)
--- NOTE | 2017-06-01 10:01 | PD.CONS ---
HPI History of Present Illness This is a 71 year old male with hx diverticulosis, cirrhosis, pacemaker who presented with complaint of hematemesis and black tarry stool. he says he took some aspirin 3 days ago and subsequently threw up red blood. He drank milk to make himself have a BM and then noticed black tarry stool. He says he has had an EGD and colonoscopy before "long time ago" but cannot remember details. CT shows cirrhosis, no acute findings. Denies abd pain, unintended weight loss. Poor/inconsistent historian. PFSH Past Medical History cirrhosis pacemaker diverticulosis Past Surgical History appy pacemaker installation Coded Allergies: No Known Allergies (Verified Allergy, Unknown, 05/31/17) Family History unk Social History drinks 2-3 beers few times week smokes 1ppd no illicit drug use Review of Systems Constitutional: DENIES: Fever Eyes: DENIES: Blurred vision Ears, nose, mouth, throat: DENIES: Hearing loss Respiratory: DENIES: Cough Cardiovascular: DENIES: Chest pain Gastrointestinal: COMPLAINS OF: Black stools, Nausea, Vomiting, Hematemesis, DENIES: Abdominal pain, Bloody stools, Constipation, Diarrhea Genitourinary: DENIES: Hematuria Musculoskeletal: DENIES: Joint Swelling Integumentary: DENIES: Rash Hematologic/lymphatic: DENIES: Bruising Immunologic/allergic: DENIES: Eczema Neurologic: DENIES: Abnormal gait Psychiatric: DENIES: Confusion GI Exam Vitals I&O Vital Signs Date Time Temp Pulse Resp B/P (MAP) Pulse Ox O2 Delivery O2 Flow Rate FiO2 06/01/17 08:24 98.6 86 18 127/74 (91) 96 06/01/17 04:00 98.0 87 18 117/60 (79) 98 06/01/17 01:35 86 06/01/17 00:00 98.9 78 18 134/70 (91) 99 05/31/17 23:22 85 05/31/17 18:02 98 Room Air 05/31/17 17:44 98.4 88 18 131/61 (84) Room Air I/O 05/31/17 05/31/17 05/31/17 06/01/17 06/01/17 06/01/17 07:00 15:00 23:00 07:00 15:00 23:00 Intake Total 1000 ml Balance 1000 ml Intake IV Total 1000 ml # Voids 3 Imaging Last Impressions Abdomen/Pelvis CT 05/31/17 1745 Signed Impressions: Service Date/Time: May 17:50 - CONCLUSION: 1. No acute findings on CT abdomen pelvis performed without contrast. 2. Liver cirrhosis without ascites. 3. Pacer leads as above. Chip Heredia MD Chest X-Ray 05/31/17 0000 Signed Impressions: Service Date/Time: May 23:19 - CONCLUSION: No acute cardiopulmonary disease identified. Cesar Skaggs MD Laboratory Test 05/31/17 18:20 06/01/17 00:24 06/01/17 02:13 White Blood Count 12.9 TH/MM3 10.2 TH/MM3 Red Blood Count 2.87 MIL/MM3 2.64 MIL/MM3 Hemoglobin 8.1 GM/DL 7.8 GM/DL 7.6 GM/DL Hematocrit 24.2 % 23.0 % 21.7 % Mean Corpuscular Volume 84.3 FL 82.4 FL Mean Corpuscular Hemoglobin 28.1 PG 28.9 PG Mean Corpuscular Hemoglobin Concent 33.4 % 35.1 % Red Cell Distribution Width 22.0 % 21.6 % Platelet Count 100 TH/MM3 109 TH/MM3 Mean Platelet Volume 9.8 FL 9.0 FL Neutrophils (%) (Auto) 72.5 % 61.8 % Lymphocytes (%) (Auto) 14.8 % 22.5 % Monocytes (%) (Auto) 8.4 % 10.6 % Eosinophils (%) (Auto) 3.6 % 4.1 % Basophils (%) (Auto) 0.7 % 1.0 % Neutrophils # (Auto) 9.4 TH/MM3 6.3 TH/MM3 Lymphocytes # (Auto) 1.9 TH/MM3 2.3 TH/MM3 Monocytes # (Auto) 1.1 TH/MM3 1.1 TH/MM3 Eosinophils # (Auto) 0.5 TH/MM3 0.4 TH/MM3 Basophils # (Auto) 0.1 TH/MM3 0.1 TH/MM3 CBC Comment DIFF FINAL DIFF FINAL Differential Comment Blood Urea Nitrogen 25 MG/DL 17 MG/DL Creatinine 0.88 MG/DL 0.64 MG/DL Random Glucose 167 MG/DL 106 MG/DL Total Protein 7.5 GM/DL 7.6 GM/DL Albumin 3.2 GM/DL 3.1 GM/DL Calcium Level 8.2 MG/DL 8.4 MG/DL Alkaline Phosphatase 62 U/L 57 U/L Aspartate Amino Transf (AST/SGOT) 38 U/L 28 U/L Alanine Aminotransferase (ALT/SGPT) 43 U/L 36 U/L Total Bilirubin 0.3 MG/DL 0.2 MG/DL Sodium Level 130 MEQ/L 132 MEQ/L Potassium Level 4.6 MEQ/L 4.2 MEQ/L Chloride Level 98 MEQ/L 101 MEQ/L Carbon Dioxide Level 22.8 MEQ/L 24.2 MEQ/L Anion Gap 9 MEQ/L 7 MEQ/L Estimat Glomerular Filtration Rate 103 ML/MIN 149 ML/MIN Lipase 202 U/L Prothrombin Time 12.2 SEC Prothromb Time International Ratio 1.2 RATIO Activated Partial Thromboplast Time 24.9 SEC Iron Level 20 MCG/DL Ferritin 25 NG/ML Physical Examination HEENT: PERRL; normocephalic; atraumatic; no jaundice. CHEST: wheezes CARDIAC: RRR ABDOMEN: Soft, nondistended, nontender; no hepatosplenomegaly; bowel sounds are present in all four quadrants. EXTREMITIES: No clubbing, cyanosis, or edema. SKIN: Normal; no rash; no jaundice. 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 Assessment and Plan Plan ASSESSMENT - hematemesis, melanotic stool, anemia - hgb 8.1 on admission, normocytic. Was 14.3 on 11/2016. questionable hx GIB, inconsistent historian PLAN - EGD today - obtain consent - NPO - monitor HH - transfuse if needed - further recs to follow This pt seen by myself and Dr Young and this note is written on his behalf Jing Felix Jun 01, 2017 10:00
[2017-06-01] MEDS: CARVEDILOL 12.5 MG TAB PO SCH ×2 (10:51→21:34)
[2017-06-01] MEDS: LISINOPRIL 20 MG TAB PO SCH (10:51)
--- NOTE | 2017-06-01 11:57 | HHI.FPPN ---
Subjective Remarks Patient doing well this morning. No complaints this morning. Denies cp, n/v/d, sob. (Elvis Estes MD, R3) Objective Vitals Vital Signs Date Time Temp Pulse Resp B/P (MAP) Pulse Ox O2 Delivery O2 Flow Rate FiO2 06/01/17 08:24 98.6 86 18 127/74 (91) 96 06/01/17 04:00 98.0 87 18 117/60 (79) 98 06/01/17 01:35 86 06/01/17 00:00 98.9 78 18 134/70 (91) 99 05/31/17 23:22 85 05/31/17 18:02 98 Room Air 05/31/17 17:44 98.4 88 18 131/61 (84) Room Air I/O 05/31/17 05/31/17 05/31/17 06/01/17 06/01/17 06/01/17 07:00 15:00 23:00 07:00 15:00 23:00 Intake Total 1000 ml Balance 1000 ml Intake IV Total 1000 ml # Voids 3 (Elvis Estes MD, R3) Result Diagram: 06/01/17 0213 06/01/17 0213 Imaging Last Impressions Abdomen/Pelvis CT 05/31/17 1745 Signed Impressions: Service Date/Time: May 17:50 - CONCLUSION: 1. No acute findings on CT abdomen pelvis performed without contrast. 2. Liver cirrhosis without ascites. 3. Pacer leads as above. Chip Heredia MD Chest X-Ray 05/31/17 0000 Signed Impressions: Service Date/Time: May 23:19 - CONCLUSION: No acute cardiopulmonary disease identified. Cesar Skaggs MD Objective Remarks GENERAL: elderly male. NAD. SKIN: Cool and dry. HEAD: Atraumatic. Normocephalic. EYES: Extraocular motions intact. No scleral icterus. ENT: Throat without erythema or ulcerations. Mucous membranes pink and moist. Uvula midline. Airway patent. NECK: Trachea midline. No JVD. CARDIOVASCULAR: Regular rate and rhythm. RESPIRATORY: Breath sounds equal bilaterally. Wheezes bilaterally GASTROINTESTINAL: Abdomen soft, non-tender, nondistended. No hepato-splenomegaly , or palpable masses. No guarding. MUSCULOSKELETAL: Extremities without clubbing, cyanosis, or edema. No calf tenderness. NEUROLOGICAL: Awake and alert. Motor and sensory grossly within normal limits. (Elvis Estes MD, R3) A/P Assessment and Plan 71-year-old male with a history of liver cirrhosis and diverticulosis who presents with GI bleed. Hemoccult positive in the ED, vitals within normal limits for hypertension (150/85), hemoglobin 8.1 (baseline appears to be around 13). Due to history of smoking, chronic daily alcohol use, and melena, suspicion for upper source of GI bleed high. GI consulted, plan for procedure today. Patient placed on IV Protonix, nothing by mouth, and SCDs. Discharge Planning pending workup (Elvis Estes MD, R3) Attending Attestation Medical rounds were performed this morning with medical residents, case discussed in detail,EMR reviewed, patient seen and examined, agree with above documentation, see Orders.Blood bank called this am to report abnormal antibodies and requested more time for blood productics preparation. patient stable so endoscopy schedule for after blood preparations (Ralf Arriaga MD) Problem List: (1) GI bleed ICD Codes: K92.2 - Gastrointestinal hemorrhage, unspecified Status: Acute Plan: Hemoglobin on admission 8.1 Decreased to 7.6 Differential: Likely upper GI bleed secondary to gastritis/duodenitis/ esophagitis v ulceration v varices v angiodysplasia GI consulted, EGD today Repeat H/H at 2000, transfuse if <7.0 Nothing by mouth Protonic IV 40 mg twice a day SCDs only (2) Cough with hemoptysis ICD Codes: R04.2 - Hemoptysis Status: Acute Plan: 11/2016 CTA showed [address] chest ordered for follow up Significant smoking history Differential: Upper GI bleed versus lung cancer versus pulmonary vascular disease See above plan for GI bleed (3) Hypertension ICD Codes: I10 - Essential (primary) hypertension Plan: Resume home meds lisinopril and amlodipine (4) Anemia ICD Codes: D64.9 - Anemia, unspecified Plan: Microcytic, -Daily CBC -H/H at 2000 - Iron panel, ferritin- low -See above plan, continue to monitor (5) Smoking history ICD Codes: Z87.891 - Personal history of nicotine dependence Plan: Nicotine gum PRN (6) FEN Plan: Fluids: Normal saline 105 MLS per hour Electrolytes: As needed Nutrition: Nothing by mouth GI prophylaxis IV Protonix twice a day DVT prophylaxis: SCDs only (Elvis Estes MD, R3) Problem Qualifiers (1) GI bleed: Qualified Codes: K92.2 - Gastrointestinal hemorrhage, unspecified (2) Anemia: Qualified Codes: D64.9 - Anemia, unspecified Elvis Estes MD, R3 Jun 01, 2017 11:57 Ralf Arriaga MD Jun 01, 2017 15:58
[2017-06-01] MEDS ORDERED: PHENYLEPH/NS 1000 MCG/10 ML SYR IV ONE (12:00)
[2017-06-01] MEDS ORDERED: ePHEDrine/NS 25 MG/5 ML SYRINGE IV ONE (12:00)
[2017-06-01] MEDS ORDERED: PROPOFOL 200 MG/20 ML AMP IV ONE (12:00)
[2017-06-01] MEDS ORDERED: LIDOCAINE HCL 1% PF 5 ML SYRINGE OTHER ONE (12:00)
--- NOTE | 2017-06-01 13:43 | HHI.GIFU ---
Subjective Remarks EGD performed showing very large deep gastric ulcer about 4cm x 4cm. At the edges there was friable tissue but no true visible vessel and no active bleeding. Biopsies were taken from the edges of the ulcer. It was located at the lesser curvature in the cardia near the [place]unction. This could be malignant. The esophagus and duodenum were examined and were normal. Gastric antrum appeared normal. Objective Vitals I&O Vital Signs Date Time Temp Pulse Resp B/P (MAP) Pulse Ox O2 Delivery O2 Flow Rate FiO2 06/01/17 12:26 98.4 80 18 142/72 (95) 96 06/01/17 08:24 98.6 86 18 127/74 (91) 96 06/01/17 04:00 98.0 87 18 117/60 (79) 98 06/01/17 01:35 86 06/01/17 00:00 98.9 78 18 134/70 (91) 99 05/31/17 23:22 85 05/31/17 18:02 98 Room Air 05/31/17 17:44 98.4 88 18 131/61 (84) Room Air I/O 05/31/17 05/31/17 05/31/17 06/01/17 06/01/17 06/01/17 07:00 15:00 23:00 07:00 15:00 23:00 Intake Total 1000 ml Balance 1000 ml Intake IV Total 1000 ml # Voids 3 Laboratory Laboratory Tests Test 05/31/17 18:20 06/01/17 00:24 06/01/17 02:13 White Blood Count 12.9 10.2 Red Blood Count 2.87 2.64 Hemoglobin 8.1 7.8 7.6 Hematocrit 24.2 23.0 21.7 Mean Corpuscular Volume 84.3 82.4 Mean Corpuscular Hemoglobin 28.1 28.9 Mean Corpuscular Hemoglobin Concent 33.4 35.1 Red Cell Distribution Width 22.0 21.6 Platelet Count 100 109 Mean Platelet Volume 9.8 9.0 Neutrophils (%) (Auto) 72.5 61.8 Lymphocytes (%) (Auto) 14.8 22.5 Monocytes (%) (Auto) 8.4 10.6 Eosinophils (%) (Auto) 3.6 4.1 Basophils (%) (Auto) 0.7 1.0 Neutrophils # (Auto) 9.4 6.3 Lymphocytes # (Auto) 1.9 2.3 Monocytes # (Auto) 1.1 1.1 Eosinophils # (Auto) 0.5 0.4 Basophils # (Auto) 0.1 0.1 CBC Comment DIFF FINAL DIFF FINAL Differential Comment Blood Urea Nitrogen 25 17 Creatinine 0.88 0.64 Random Glucose 167 106 Total Protein 7.5 7.6 Albumin 3.2 3.1 Calcium Level 8.2 8.4 Alkaline Phosphatase 62 57 Aspartate Amino Transf (AST/SGOT) 38 28 Alanine Aminotransferase (ALT/SGPT) 43 36 Total Bilirubin 0.3 0.2 Sodium Level 130 132 Potassium Level 4.6 4.2 Chloride Level 98 101 Carbon Dioxide Level 22.8 24.2 Anion Gap 9 7 Estimat Glomerular Filtration Rate 103 149 Lipase 202 Prothrombin Time 12.2 Prothromb Time International Ratio 1.2 Activated Partial Thromboplast Time 24.9 Iron Level 20 Ferritin 25 Physical Exam HEENT: Pupils round and reactive to light; normocephalic; atraumatic; no jaundice. Throat is clear. NECK: Neck is supple, no JVD, no lymphadenopathy. CHEST: Chest is clear to auscultation and percussion. CARDIAC: Regular rate and rhythm with no murmur gallop or rubs. ABDOMEN: Soft, nondistended, nontender; no hepatosplenomegaly; bowel sounds are present in all four quadrants. EXTREMITIES: No clubbing, cyanosis, or edema. SKIN: Normal; no rash; no jaundice. PRINT PRODUCTION COORDINATOR: No focal deficits; alert and oriented times three. Assessment and Plan Plan ASSESSMENT - hematemesis, melanotic stool, anemia - hgb 8.1 on admission, normocytic. Was 14.3 on 11/2016. questionable hx GIB, inconsistent historian - EGD today showed large deep gastric ulcer that could be malignant or benign. Biopsies obtained from the edges. No abnormality in esophagus or duodenum. PLAN - full liquid diet - monitor HH - CT scan of abdomen and pelvis - transfuse if needed - further recs to follow Star Young MD Jun 01, 2017 13:43
[2017-06-01] MEDS ORDERED: NALOXONE HCL 0.4 MG/ML AMP IV PUSH PRN (13:45)
--- NOTE | 2017-06-01 20:14 | RADRPT ---
EXAM DATE/TIME: 06/01/2017 19:54 [facility] COMPARISON: No previous studies available for comparison. INDICATIONS : Lung nodule, follow up. RADIATION DOSE: 8.55 CTDIvol (mGy) MEDICAL HISTORY : Cardiovascular disease. Hypertension. SURGICAL HISTORY : Pacemaker. ENCOUNTER: Initial ACUITY: 4 - 6 months PAIN SCALE: 0/10 LOCATION: chest TECHNIQUE: Volumetric scanning of the chest was performed. Using automated exposure control and adjustment of t he mA and/or kV according to patient size, radiation dose was kept as low as reasonably achievable to obtain optimal diagnostic quality images. DICOM format image data is available electronically for r eview and comparison. Follow-up recommendations for detected pulmonary nodules are based at a minimum on nodule size and pa tient risk factors according to Fleischner Society Guidelines. FINDINGS: Previously described 5 mm nodule in the right upper lobe is not visualized on today's exam. 3 mm nodu le is stable. Calcified granuloma left lower lobe. Minimal basilar scarring. No pleural or pericardial effusion. Pa cer leads unchanged. Dense coronary calcifications. No acute findings in the upper abdomen. CONCLUSION: 1. Stable 3 mm nodule right lung compared with November 2016. No new nodule. Previously identified 5 mm n odule not seen on today's exam. No further work up recommended. Chip Heredia MD on June 01, 2017 at 20:06 Board Certified Radiologist. This report was verified electronically.
[2017-06-01 22:26] LABS: HEMATOCRIT 21.9 % (39.0-51.0); REVIEW FLAG FINAL
[2017-06-02] VITALS (10 sets, daily range): BP systolic 114–145; BP diastolic 55–78; PULSE 69–90; RESP 18–22; TEMP 97.8–98.6; O2SAT 95–99
[2017-06-02] MEDS: SODIUM CHLOR 0.9% 1000 ML INJ 1,000 ML IV SCH ×2 (03:22→11:35)
[2017-06-02] MEDS: CARVEDILOL 12.5 MG TAB PO SCH ×2 (08:31→23:13)
[2017-06-02] MEDS: LISINOPRIL 20 MG TAB PO SCH (08:32)
[2017-06-02] MEDS: SODIUM CHLORIDE 0.9% FLUSH 10 ML FLUSH IV FLUSH SCH ×2 (08:38→23:14)
--- NOTE | 2017-06-02 09:39 | EKG ---
Date Performed: 06/01/2017 Time Performed: 05:05:56 PTAGE: 71 years EKG: Ventricular pacing Pacemaker rhythm - no further analysis Abnormal ECG NO PREVIOUS TRACING DOCTOR: Jus Harry Interpretating Date/Time 06/02/2017 09:38:06
[2017-06-02] MEDS ORDERED: PNEUMOCOCCAL POLYVALENT INJ 25 MCG/0.5 ML SYR IM ONE (10:00)
[2017-06-02] MEDS ORDERED: INFLUENZA VIRUS VACCINE (QUADRIVALENT) 0.5 ML SYR IM ONE (10:00)
[2017-06-02 10:15] LABS: AUTOMATED NEUTROPHIL # 3.4 TH/MM3 (1.8-7.7); BASOPHIL % 0.8 % (0.0-2.0); EOSINOPHIL # 0.5 TH/MM3 (0-0.4); HEMATOCRIT 22.1 % (39.0-51.0); HEMO FLAGS DIFF FINAL; LYMPH % 26.8 % (9.0-44.0); LYMPHOCYTE # 1.7 TH/MM3 (1.0-4.8); MEAN CELL VOLUME 84.2 FL (80.0-100.0); MEAN CORPUSCULAR HGB CONC 33.3 % (32.0-36.0); MONO % 10.1 % (0.0-8.0); NEUT % 54.3 % (16.0-70.0); PLATELET COUNT 111 TH/MM3 (150-450); RED BLOOD COUNT 2.63 MIL/MM3 (4.50-5.90); RED CELL DISTRIBUTION WIDTH 22.1 % (11.6-17.2); WHITE BLOOD COUNT 6.3 TH/MM3 (4.0-11.0)
[2017-06-02 10:39] LABS: ALT (GPT) 41 U/L (12-78); ANION GAP 6 MEQ/L (5-15); AST (GOT) 36 U/L (15-37); BICARBONATE 22.3 MEQ/L (21.0-32.0); BLOOD UREA NITROGEN 10 MG/DL (7-18); CHLORIDE 104 MEQ/L (98-107); GLOMERULAR FILTRATION RATE 141 ML/MIN (>89); POTASSIUM 4.3 MEQ/L (3.5-5.1); SODIUM (NA) 132 MEQ/L (136-145)
[2017-06-02 10:42] LABS: ALKALINE PHOSPHATASE 59 U/L (45-117); TOTAL BILIRUBIN ADULT 0.4 MG/DL (0.2-1.0)
--- NOTE | 2017-06-02 10:53 | HHI.FPPN ---
Subjective Remarks No acute events overnight. Pt sitting up on side of bed this AM. Reports that he is doing well. Tolerated full liquid breakfast well. Denies chest pain, SOB, abdominal pain, and N/V. (Kenna Brooke MD R1) Objective Vitals Vital Signs Date Time Temp Pulse Resp B/P (MAP) Pulse Ox O2 Delivery O2 Flow Rate FiO2 06/02/17 08:00 97.9 77 18 145/64 (91) 97 06/02/17 07:40 97 21 06/02/17 04:37 98.2 73 20 123/71 (88) 98 06/02/17 00:17 98.1 71 20 119/70 (86) 99 06/02/17 00:00 69 06/01/17 22:05 86 06/01/17 21:43 97 06/01/17 21:42 100 06/01/17 20:00 97.9 77 20 116/67 (83) 100 06/01/17 16:33 98.1 81 18 155/70 (98) 98 06/01/17 16:09 80 06/01/17 15:34 74 06/01/17 14:08 97 06/01/17 13:49 81 89/56 (67) 97 06/01/17 13:43 99.0 82 18 86/50 (62) 97 06/01/17 12:26 98.4 80 18 142/72 (95) 96 I/O 06/01/17 06/01/17 06/01/17 06/02/17 06/02/17 06/02/17 07:00 15:00 23:00 07:00 15:00 23:00 Intake Total 1240 ml Output Total 650 ml Balance 590 ml Intake Oral 240 ml IV Total 1000 ml Output Urine Total 650 ml # Voids 3 2 (Kenna Brooke MD R1) Result Diagram: 06/02/1791406/02/1715 Objective Remarks GENERAL: elderly male. NAD. SKIN: Cool and dry. HEAD: Atraumatic. Normocephalic. EYES: Extraocular motions intact. No scleral icterus. ENT: Throat without erythema or ulcerations. Mucous membranes pink and moist. Uvula midline. Airway patent. NECK: Trachea midline. No JVD. CARDIOVASCULAR: Regular rate and rhythm. RESPIRATORY: Breath sounds equal bilaterally. Wheezes bilaterally GASTROINTESTINAL: Abdomen soft, non-tender, nondistended. No hepato-splenomegaly , or palpable masses. No guarding. MUSCULOSKELETAL: Extremities without clubbing, cyanosis, or edema. No calf tenderness. NEUROLOGICAL: Awake and alert. Motor and sensory grossly within normal limits. (Kenna Brooke MD R1) A/P Assessment and Plan 71-year-old male with a history of liver cirrhosis and diverticulosis who presents with GI bleed. Please see plan below. Discharge Planning pending workup (Kenna Brooke MD R1) Attending Attestation Medical rounds reguarding this patient performed with Dr Gabriel Brooke this morning, detailed discussion relating to patients hospital course held, patient seen and examined, agree to documentation in this note, See Orders (Ralf Arriaga MD) Problem List: (1) GI bleed ICD Codes: K92.2 - Gastrointestinal hemorrhage, unspecified Status: Acute Plan: Presented with Hematemesis and melena. Hemoglobin on admission 8.1 Hemoccult positive. GI consulted, recs appreciated EGD 06/01 demonstrated large, deep gastric ulcer about 4cm x4cm. At the edges there was friable tissue but no true visible vessel and no active bleeding. Biopsies were take from the edges of the ulcer. Biopsy pending. CT abdomen/pelvis IV contrast (05/31) no acute findings Repeat H/H at 1900 transfuse if <7.0, Nothing by mouth Protonix IV 40 mg twice a day SCDs only (2) Cough with hemoptysis ICD Codes: R04.2 - Hemoptysis Status: Acute Plan: 11/2016 CTA showed 2 small lung nodules. Significant smoking history Chest CT 06/01 demonstrated 3mm nodule right lung compared with November 2016 exam, no new nodule. Previously identified 5mm nodule not seen on today's exam. See above plan for GI bleed (3) Hypertension ICD Codes: I10 - Essential (primary) hypertension Plan: Resume home meds lisinopril and amlodipine (4) Anemia ICD Codes: D64.9 - Anemia, unspecified Plan: Microcytic, -Daily CBC -H/H at 1900 - Iron panel, ferritin- low -See above plan, continue to monitor (5) Smoking history ICD Codes: Z87.891 - Personal history of nicotine dependence Plan: Nicotine gum PRN (6) FEN Plan: Fluids: Not indicated at this time. Electrolytes: As needed Nutrition: Regular Basic Diet GI prophylaxis IV Protonix twice a day DVT prophylaxis: SCDs only (Kenna Brooke MD R1) Problem Qualifiers (1) GI bleed: Qualified Codes: K92.2 - Gastrointestinal hemorrhage, unspecified (2) Anemia: Qualified Codes: D64.9 - Anemia, unspecified Kenna Brooke MD R1 Jun 02, 2017 10:53 Ralf Arriaga MD Jun 03, 2017 10:56
[2017-06-02] MEDS: PANTOPRAZOLE SODIUM 40 MG VIAL IV PUSH SCH ×2 (11:35→23:14)
--- NOTE | 2017-06-02 11:35 | HHI.GIFU ---
Subjective Remarks Pt sitting up in bed, in no apparent distress. Had full liquid diet this morning, tolerated. Per nurse he has now been advanced to regular diet. Pt denies BM since having procedure done yesterday. Objective Vitals I&O Vital Signs Date Time Temp Pulse Resp B/P (MAP) Pulse Ox O2 Delivery O2 Flow Rate FiO2 06/02/17 08:00 97.9 77 18 145/64 (91) 97 06/02/17 07:40 97 21 06/02/17 04:37 98.2 73 20 123/71 (88) 98 06/02/17 00:17 98.1 71 20 119/70 (86) 99 06/02/17 00:00 69 06/01/17 22:05 86 06/01/17 21:43 97 06/01/17 21:42 100 06/01/17 20:00 97.9 77 20 116/67 (83) 100 06/01/17 16:33 98.1 81 18 155/70 (98) 98 06/01/17 16:09 80 06/01/17 15:34 74 06/01/17 14:08 97 06/01/17 13:49 81 89/56 (67) 97 06/01/17 13:43 99.0 82 18 86/50 (62) 97 06/01/17 12:26 98.4 80 18 142/72 (95) 96 I/O 06/01/17 06/01/17 06/01/17 06/02/17 06/02/17 06/02/17 07:00 15:00 23:00 07:00 15:00 23:00 Intake Total 1240 ml Output Total 650 ml Balance 590 ml Intake Oral 240 ml IV Total 1000 ml Output Urine Total 650 ml # Voids 3 2 Laboratory Laboratory Tests Test 06/01/17 21:33 06/02/17 09:15 Hemoglobin 7.2 7.4 Hematocrit 21.9 22.1 White Blood Count 6.3 Red Blood Count 2.63 Mean Corpuscular Volume 84.2 Mean Corpuscular Hemoglobin 28.0 Mean Corpuscular Hemoglobin Concent 33.3 Red Cell Distribution Width 22.1 Platelet Count 111 Mean Platelet Volume 9.0 Neutrophils (%) (Auto) 54.3 Lymphocytes (%) (Auto) 26.8 Monocytes (%) (Auto) 10.1 Eosinophils (%) (Auto) 8.0 Basophils (%) (Auto) 0.8 Neutrophils # (Auto) 3.4 Lymphocytes # (Auto) 1.7 Monocytes # (Auto) 0.6 Eosinophils # (Auto) 0.5 Basophils # (Auto) 0.0 CBC Comment DIFF FINAL Differential Comment Blood Urea Nitrogen 10 Creatinine 0.67 Random Glucose 126 Total Protein 6.7 Albumin 3.0 Calcium Level 7.7 Alkaline Phosphatase 59 Aspartate Amino Transf (AST/SGOT) 36 Alanine Aminotransferase (ALT/SGPT) 41 Total Bilirubin 0.4 Sodium Level 132 Potassium Level 4.3 Chloride Level 104 Carbon Dioxide Level 22.3 Anion Gap 6 Estimat Glomerular Filtration Rate 141 Imaging Last Impressions Chest CT 06/01/17 0000 Signed Impressions: Service Date/Time: Thursday, June 01, 2017 19:54 - CONCLUSION: 1. Stable 3 mm nodule right lung compared with November 2016. No new nodule. Previously identified 5 mm nodule not seen on today's exam. No further work up recommended. Chip Heredia MD Abdomen/Pelvis CT 05/31/17 1745 Signed Impressions: Service Date/Time: May 17:50 - CONCLUSION: 1. No acute findings on CT abdomen pelvis performed without contrast. 2. Liver cirrhosis without ascites. 3. Pacer leads as above. Chip Heredia MD Chest X-Ray 05/31/17 0000 Signed Impressions: Service Date/Time: May 23:19 - CONCLUSION: No acute cardiopulmonary disease identified. Cesar Skaggs MD Physical Exam HEENT: Normocephalic; atraumatic CHEST: CTA CARDIAC: RRR ABDOMEN: Soft, nondistended, nontender; no hepatosplenomegaly; bowel sounds active x 4. EXTREMITIES: No clubbing, cyanosis, or edema. SKIN: Normal; no rash; no jaundice. REGISTERED MEDICAL TRANSCRIPTIONIST: No focal deficits; alert and oriented times three. Assessment and Plan Plan ASSESSMENT - Anemia- previously reporting hematemesis and melena, resolved. EGD (06/01) -- > Large, deep gastric ulcer about 4cm x 4cm. At the edges there was friable tissue but no true visible vessel and no active bleeding. Biopsies were taken from the edges of the ulcer. It was located in the lesser curvature in the cardia near the GE junction. This could be malignant. Normal esophagus and duodenum. Gastric antrum appeared normal. Biopsy pending. H/H currently 7.4/22.1. 2 U PRBC ordered, per RN she was instructed to transfuse if hemoglobin drops below 7. CT abdomen/pelvis W/O IV contrast (05/31) --> No acute findings. Liver cirrhosis without ascites. Chest CT (06/01) --> Stable 3mm nodule right lung compared with November 2016 exam, no new nodule. Previously identified 5mm nodule no seen on todays exam. PPI. PLAN - SILVIA - Biopsy pending - PPI - Monitor H/H - Transfuse as needed - Notify GI of active bleeding - Supportive care - Further recommendations to follow Pt has been seen and examined by myself and Dr. Young and this note is written on his behalf Kayla Celis Jun 02, 2017 11:35
[2017-06-02] MEDS: MAGNESIUM HYDROXIDE SUSP 30 ML CUP PO PRN (17:26)
[2017-06-02 20:59] LABS: REVIEW FLAG FINAL
[2017-06-02 21:05] LABS: HEMATOCRIT 20.2 % (39.0-51.0)
[2017-06-03] VITALS (17 sets, daily range): BP systolic 123–167; BP diastolic 56–78; PULSE 68–88; RESP 16–19; TEMP 98.2–99.9; O2SAT 95–100
[2017-06-03 01:57] LABS: C. DIFF EPI 027 PRESUMPTIVE NEGATIVE (NEGATIVE)
[2017-06-03 07:35] LABS: HEMATOCRIT 25.5 % (39.0-51.0); MEAN CELL VOLUME 84.3 FL (80.0-100.0); MEAN CORPUSCULAR HEMOGLOBIN 28.3 PG (27.0-34.0); MEAN CORPUSCULAR HGB CONC 33.5 % (32.0-36.0); PLATELET COUNT 112 TH/MM3 (150-450); RED BLOOD COUNT 3.03 MIL/MM3 (4.50-5.90); RED CELL DISTRIBUTION WIDTH 20.1 % (11.6-17.2); REVIEW FLAG FINAL; WHITE BLOOD COUNT 5.8 TH/MM3 (4.0-11.0)
[2017-06-03 07:51] LABS: BICARBONATE 21.4 MEQ/L (21.0-32.0); POTASSIUM 4.2 MEQ/L (3.5-5.1)
[2017-06-03] MEDS: CARVEDILOL 12.5 MG TAB PO SCH ×2 (07:57→21:37)
[2017-06-03] MEDS: SODIUM CHLORIDE 0.9% FLUSH 10 ML FLUSH IV FLUSH SCH ×2 (07:57→21:38)
[2017-06-03] MEDS: LISINOPRIL 20 MG TAB PO SCH (07:58)
--- NOTE | 2017-06-03 10:17 | HHI.FPPN ---
Subjective Remarks Patient received 2 units of PRBCs overnight for Hb of 6.7. Hb improved to 8.6 post-transfusion. Pt sitting up on the side of the bed this AM. No complaints this AM. About to order breakfast. Denies CP, SOB, lightheadedness, fatigue, abdominal pain, and N/V. Afebrile. VSS. (Kenna Block MD R1) Objective Vitals Vital Signs Date Time Temp Pulse Resp B/P (MAP) Pulse Ox O2 Delivery O2 Flow Rate FiO2 06/03/17 09:31 76 06/03/17 08:00 98.2 72 18 125/68 (87) 97 06/03/17 05:38 98.9 73 16 131/63 (85) 99 06/03/17 05:36 98.9 73 16 131/63 99 06/03/17 05:21 99.9 72 16 132/63 98 06/03/17 04:45 98.7 85 16 126/58 97 06/03/17 01:53 98.6 88 18 131/62 97 06/03/17 01:39 99.3 73 18 125/56 98 06/03/17 00:00 99.4 71 18 123/56 (78) 98 06/03/17 00:00 86 06/02/17 20:00 75 06/02/17 20:00 98.6 85 22 120/57 (78) 98 06/02/17 18:15 71 06/02/17 16:00 98.1 82 18 114/55 (74) 95 06/02/17 13:30 72 06/02/17 12:14 97.8 90 18 131/78 (95) 97 I/O 06/02/17 06/02/17 06/02/17 06/03/17 06/03/17 06/03/17 07:00 15:00 23:00 07:00 15:00 23:00 Intake Total 1240 ml 2202 ml 240 ml 550 ml 405 ml Output Total 650 ml 600 ml 200 ml 0 ml Balance 590 ml 1602 ml 40 ml 550 ml 405 ml Intake Oral 240 ml 1160 ml 240 ml IV Total 1000 ml 1042 ml Packed Cells 400 ml 400 ml Blood Product IV Normal Saline Flush 150 ml 5 ml Output Urine Total 650 ml 600 ml 200 ml 0 ml # Bowel Movements 0 1 0 (Kenna Block MD R1) Result Diagram: 06/03/17 0631 06/03/17 06 Objective Remarks GENERAL: elderly male. NAD. SKIN: Cool and dry. HEAD: Atraumatic. Normocephalic. EYES: Extraocular motions intact. No scleral icterus. ENT: Throat without erythema or ulcerations. Mucous membranes pink and moist. Uvula midline. Airway patent. NECK: Trachea midline. No JVD. CARDIOVASCULAR: Regular rate and rhythm. RESPIRATORY: Breath sounds equal bilaterally. Wheezes bilaterally GASTROINTESTINAL: Abdomen soft, non-tender, nondistended. No hepato-splenomegaly , or palpable masses. No guarding. MUSCULOSKELETAL: Extremities without clubbing, cyanosis, or edema. No calf tenderness. NEUROLOGICAL: Awake and alert. Motor and sensory grossly within normal limits. (Kenna Block MD R1) A/P Assessment and Plan 71-year-old male with a history of liver cirrhosis and diverticulosis who presents with GI bleed. Please see plan below. Discharge Planning pending workup (Kenna Block MD R1) Attending Attestation THIS CASE WAS DISCUSSED WITH THE RESIDENT PHYSICIAN,DR Gabriel BLOCK. I HAVE REVIEWED THE RECORD,PATIENT SEEN AND EXAMINED AND AGREE WITH THE ABOVE NOTE AND PLAN OF CARE WAS DISCUSSED. I HAVE AUTHORIZED THE ORDERS. (Ralf Arriaga MD) Problem List: (1) GI bleed ICD Codes: K92.2 - Gastrointestinal hemorrhage, unspecified Status: Acute Plan: Presented with Hematemesis and melena. Hemoglobin on admission 8.1 Hemoccult positive. GI consulted, recs appreciated EGD 06/01 demonstrated large, deep gastric ulcer about 4cm x4cm. At the edges there was friable tissue but no true visible vessel and no active bleeding. Biopsies were take from the edges of the ulcer. CT abdomen/pelvis without IV contrast (05/31) liver cirrhosis without ascites , no acute findings Order repeat CT abdomen/ pelvis with IV contrast to check for mets s/p 2 units of PRBCs transfused 06/02, Hb improved to 8.6 Protonix IV 40 mg twice a day Biopsy pending SCDs only (2) Cough with hemoptysis ICD Codes: R04.2 - Hemoptysis Status: Acute Plan: 11/2016 CTA showed 2 small lung nodules. Significant smoking history Chest CT 06/01 demonstrated 3mm nodule right lung compared with November 2016 exam, no new nodule. Previously identified 5mm nodule not seen on today's exam. See above plan for GI bleed (3) Hypertension ICD Codes: I10 - Essential (primary) hypertension Plan: Resume home meds lisinopril and amlodipine (4) Anemia ICD Codes: D64.9 - Anemia, unspecified Plan: Microcytic, -Daily CBC -H/H at 1900 - Iron panel, ferritin- low -See above plan, continue to monitor (5) Smoking history ICD Codes: Z87.891 - Personal history of nicotine dependence Plan: Nicotine gum PRN (6) FEN Plan: Fluids: Not indicated at this time. Electrolytes: As needed Nutrition: Regular Basic Diet GI prophylaxis IV Protonix twice a day DVT prophylaxis: SCDs only (Kenna Block MD R1) Problem Qualifiers (1) GI bleed: Qualified Codes: K92.2 - Gastrointestinal hemorrhage, unspecified (2) Hypertension: Qualified Codes: I10 - Essential (primary) hypertension (3) Anemia: Qualified Codes: D64.9 - Anemia, unspecified Kenna Block MD R1 Jun 03, 2017 10:17 Ralf Arriaga MD Jun 05, 2017 21:19
[2017-06-03] MEDS ORDERED: DIATRIZOATE MEGLUM/DIATRIZOATE SOD 9 ML CUP PO ONE (11:15)
[2017-06-03] MEDS: PANTOPRAZOLE SODIUM 40 MG VIAL IV PUSH SCH ×2 (11:39→21:37)
--- NOTE | 2017-06-03 13:00 | HHI.GIFU ---
Subjective Remarks Patient walking about his room, in no apparent distress. Tolerating diet. Objective Vitals I&O Vital Signs Date Time Temp Pulse Resp B/P (MAP) Pulse Ox O2 Delivery O2 Flow Rate FiO2 06/03/17 09:31 76 06/03/17 08:00 98.2 72 18 125/68 (87) 97 06/03/17 05:38 98.9 73 16 131/63 (85) 99 06/03/17 05:36 98.9 73 16 131/63 99 06/03/17 05:21 99.9 72 16 132/63 98 06/03/17 04:45 98.7 85 16 126/58 97 06/03/17 01:53 98.6 88 18 131/62 97 06/03/17 01:39 99.3 73 18 125/56 98 06/03/17 00:00 99.4 71 18 123/56 (78) 98 06/03/17 00:00 86 06/02/17 20:00 75 06/02/17 20:00 98.6 85 22 120/57 (78) 98 06/02/17 18:15 71 06/02/17 16:00 98.1 82 18 114/55 (74) 95 06/02/17 13:30 72 I/O 06/02/17 06/02/17 06/02/17 06/03/17 06/03/17 06/03/17 07:00 15:00 23:00 07:00 15:00 23:00 Intake Total 1240 ml 2202 ml 240 ml 550 ml 405 ml Output Total 650 ml 600 ml 200 ml 0 ml Balance 590 ml 1602 ml 40 ml 550 ml 405 ml Intake Oral 240 ml 1160 ml 240 ml IV Total 1000 ml 1042 ml Packed Cells 400 ml 400 ml Blood Product IV Normal Saline Flush 150 ml 5 ml Output Urine Total 650 ml 600 ml 200 ml 0 ml # Bowel Movements 0 1 0 Laboratory Laboratory Tests Test 06/02/17 20:00 06/02/17 20:36 06/03/17 06:31 Stool C. difficile Toxin (PCR) NEGATIVE Stl C. difficile Toxin Epiderm 027 PRESUMPTIVE NEGATIVE Hemoglobin 6.7 8.6 Hematocrit 20.2 25.5 White Blood Count 5.8 Red Blood Count 3.03 Mean Corpuscular Volume 84.3 Mean Corpuscular Hemoglobin 28.3 Mean Corpuscular Hemoglobin Concent 33.5 Red Cell Distribution Width 20.1 Platelet Count 112 Mean Platelet Volume 8.7 Blood Urea Nitrogen 8 Creatinine 0.64 Random Glucose 113 Calcium Level 7.6 Sodium Level 131 Potassium Level 4.2 Chloride Level 103 Carbon Dioxide Level 21.4 Anion Gap 7 Estimat Glomerular Filtration Rate 149 Imaging Last Impressions Chest CT 06/01/17 0000 Signed Impressions: Service Date/Time: Thursday, June 01, 2017 19:54 - CONCLUSION: 1. Stable 3 mm nodule right lung compared with November 2016. No new nodule. Previously identified 5 mm nodule not seen on today's exam. No further work up recommended. Chip Heredia MD Abdomen/Pelvis CT 05/31/17 1745 Signed Impressions: Service Date/Time: May 17:50 - CONCLUSION: 1. No acute findings on CT abdomen pelvis performed without contrast. 2. Liver cirrhosis without ascites. 3. Pacer leads as above. Chip Heredia MD Chest X-Ray 05/31/17 0000 Signed Impressions: Service Date/Time: May 23:19 - CONCLUSION: No acute cardiopulmonary disease identified. Cesar Skaggs MD Physical Exam HEENT: Normocephalic; atraumatic CHEST: CTA CARDIAC: RRR ABDOMEN: Soft, nondistended, nontender; no hepatosplenomegaly; bowel sounds active x 4. EXTREMITIES: No clubbing, cyanosis, or edema. SKIN: Normal; no rash; no jaundice. NATURAL GAS TREATING UNIT OPERATOR: No focal deficits; alert and oriented times three. Assessment and Plan Plan ASSESSMENT: - Anemia- previously reporting hematemesis and melena, resolved. EGD (06/01) -- > Large, deep gastric ulcer about 4cm x 4cm. At the edges there was friable tissue but no true visible vessel and no active bleeding. Biopsies were taken from the edges of the ulcer. It was located in the lesser curvature in the cardia near the GE junction. This could be malignant. Normal esophagus and duodenum. Gastric antrum appeared normal. Biopsy pending. H/H currently 7.4/22.1. 2 U PRBC ordered, per RN she was instructed to transfuse if hemoglobin drops below 7. CT abdomen/pelvis W/O IV contrast (05/31) --> No acute findings. Liver cirrhosis without ascites. Chest CT (06/01) --> Stable 3mm nodule right lung compared with November 2016 exam, no new nodule. Previously identified 5mm nodule not seen on today's exam. PPI. 06/03/17--HH 6.7/20.2 on 06/02. S/p 2 units PRBCs. HH today 8.6/25.5. No active bleeding. EGD biopsies pending. Repeat CT Abdomen ordered to check for mets. PLAN: - SILVIA - Await biopsy results - Await repeat Abdomen CT results - PPI BID - Monitor H/H - Transfuse as needed - Notify GI of active bleeding - Supportive care - Further recommendations to follow based on results of above Patient seen and examined by Dr. Young and myself and this note is written on his behalf. Rona Huitron Jun 03, 2017 13:00
[2017-06-03] MEDS ORDERED: IOHEXOL 350 MG/ML 10 ML VIAL (for RAD DIAG) IVCONTRAST ONE (19:43)
--- NOTE | 2017-06-03 22:14 | RADRPT ---
EXAM DATE/TIME: 06/03/2017 19:41 [facility] COMPARISON: CT THORAX W/O CONTRAST, June 01, 2017, 19:54. CT ABDOMEN & PELVIS W CONTRAST, July 12, 2014, 11:17. INDICATIONS : GI bleed and anemia; rule out abdominal mass. IV CONTRAST: 72 cc Omnipaque 350 (iohexol) IV ORAL CONTRAST: Prescribed oral contrast ingested. RADIATION DOSE: 13.96 CTDIvol (mGy) MEDICAL HISTORY : Cardiovascular disease. Congestive heart failure. Diabetes mellitus type 2.Hypertension SURGICAL HISTORY : Appendectomy. ENCOUNTER: Initial ACUITY: 1 day PAIN SCALE: 6/10 LOCATION: Abdomen TECHNIQUE: Volumetric scanning of the abdomen and pelvis was performed. Using automated exposure control and ad justment of the mA and/or kV according to patient size, radiation dose was kept as low as reasonably achievable to obtain optimal diagnostic quality images. DICOM format image data is available electro nically for review and comparison. FINDINGS: The liver, spleen, pancreas, adrenal glands and kidneys appear grossly normal. Atherosclerotic calci fications are seen throughout the arterial system. An aneurysm is not present. The bowel is unremar kable. The abdominal wall is intact. There is a pacing device seen in the right groin with the lead extending through the venous system into the right atrium. The lung bases are clear. There is some degenerative change in the lumbar spine. CONCLUSION: No acute abnormality is seen. Nitin Garcia MD on June 03, 2017 at 20:08 Board Certified Radiologist. This report was verified electronically.
[2017-06-04] VITALS (8 sets, daily range): BP systolic 124–183; BP diastolic 67–84; PULSE 69–84; RESP 18–20; TEMP 98–98.9; O2SAT 97–100
[2017-06-04 07:41] LABS: MEAN CELL VOLUME 83.5 FL (80.0-100.0); MEAN CORPUSCULAR HEMOGLOBIN 28.3 PG (27.0-34.0); MEAN CORPUSCULAR HGB CONC 33.9 % (32.0-36.0); PLATELET COUNT 105 TH/MM3 (150-450); RED BLOOD COUNT 3.47 MIL/MM3 (4.50-5.90); RED CELL DISTRIBUTION WIDTH 19.3 % (11.6-17.2); REVIEW FLAG FINAL; WHITE BLOOD COUNT 5.6 TH/MM3 (4.0-11.0)
[2017-06-04 08:09] LABS: BICARBONATE 21.6 MEQ/L (21.0-32.0); POTASSIUM 4.3 MEQ/L (3.5-5.1)
[2017-06-04] MEDS: SODIUM CHLORIDE 0.9% FLUSH 10 ML FLUSH IV FLUSH SCH ×2 (09:04→21:20)
[2017-06-04] MEDS: CARVEDILOL 12.5 MG TAB PO SCH ×2 (09:04→21:20)
[2017-06-04] MEDS: LISINOPRIL 20 MG TAB PO SCH (09:04)
[2017-06-04] MEDS: PANTOPRAZOLE SODIUM 40 MG VIAL IV PUSH SCH ×2 (09:04→23:02)
--- NOTE | 2017-06-04 10:33 | HHI.FPPN ---
Subjective Remarks Mr. Ngo was afebrile with mild HTN overnight (max SBP 173 this morning). Patient reports normal BM last night without additional stools since last night ; no suggestion of blood in stool. Patient does not have any abdominal pain. No nausea or vomiting. Patient has not had any fevers/chills. Normal urination. Patient able to ambulate to bathroom without reported dizziness. No chest pain or shortness of breath reported. Objective Vitals Vital Signs Date Time Temp Pulse Resp B/P (MAP) Pulse Ox O2 Delivery O2 Flow Rate FiO2 06/04/17 09:42 70 06/04/17 08:22 98.4 74 19 173/81 (111) 100 06/04/17 04:00 98.9 76 20 134/81 (98) 99 06/04/17 00:00 98.9 69 20 151/71 (97) 98 06/04/17 00:00 72 06/03/17 22:00 153/73 (99) 06/03/17 20:15 78 06/03/17 20:00 98.3 86 18 167/78 (107) 98 06/03/17 17:35 72 06/03/17 16:00 98.6 79 19 161/75 (103) 95 06/03/17 14:00 100 06/03/17 13:31 70 06/03/17 12:00 98.9 68 18 147/67 (93) 96 I/O 06/03/17 06/03/17 06/03/17 06/04/17 06/04/17 06/04/17 07:00 15:00 23:00 07:00 15:00 23:00 Intake Total 550 ml 885 ml Output Total 0 ml 950 ml 2200 ml Balance 550 ml -65 ml -2200 ml Intake Oral 480 ml Packed Cells 400 ml 400 ml Blood Product IV Normal Saline Flush 150 ml 5 ml Output Urine Total 0 ml 950 ml 2200 ml # Voids 2 # Bowel Movements 0 Result Diagram: 06/04/17 0638 06/04/17 0638 Imaging Last Impressions Abdomen/Pelvis CT 06/03/17 0000 Signed Impressions: Service Date/Time: Saturday, June 03, 2017 19:41 - CONCLUSION: No acute abnormality is seen. Nitin Garcia MD Chest CT 06/01/17 0000 Signed Impressions: Service Date/Time: Thursday, June 01, 2017 19:54 - CONCLUSION: 1. Stable 3 mm nodule right lung compared with November 2016. No new nodule. Previously identified 5 mm nodule not seen on today's exam. No further work up recommended. Chip Heredia MD Chest X-Ray 05/31/17 0000 Signed Impressions: Service Date/Time: May 23:19 - CONCLUSION: No acute cardiopulmonary disease identified. Cesar Skaggs MD Objective Remarks GENERAL: elderly male. NAD. SKIN: Cool and dry. EYES: Extraocular motions grossly intact. ENT: Throat without erythema or ulcerations. Mucous membranes pink and moist. Uvula midline. Airway patent. CARDIOVASCULAR: Regular rate and rhythm. No LE edema. Normal perfusion RESPIRATORY: Normal rate; CTAB GASTROINTESTINAL: Abdomen soft, non-tender, nondistended. No guarding. MUSCULOSKELETAL: Extremities without edema. No calf tenderness. NEUROLOGICAL: Awake and alert. Normal cranial nerves. Peripheral motor and sensory function grossly within normal limits. A/P Assessment and Plan 71-year-old male with a history of liver cirrhosis and diverticulosis who presents with GI bleed. Please see plan below. Discharge Planning pending workup Problem List: (1) GI bleed ICD Codes: K92.2 - Gastrointestinal hemorrhage, unspecified Status: Acute Plan: 06/02: Hgb 6.7; 2 U pRBC transfused 06/03: Post transfusion Hgb 8.6. 06/04: Hgb 9.8. Eating well. No abnormal stools -GI consulted -SILVIA -Await biopsy results -PPI BID -Monitor H/H and transfuse as needed Impression: Presented with Hematemesis and melena. Hemoglobin on admission 8.1 Hemoccult positive. 06/03- Repeat CT Abdomen/Pelvis without acute abnormality EGD 06/01 demonstrated large, deep gastric ulcer about 4cm x4cm. At the edges there was friable tissue but no true visible vessel and no active bleeding. Biopsies were take from the edges of the ulcer. 05/31: CT abdomen/pelvis without IV contrast (05/31) liver cirrhosis without ascites , no acute findings (2) Cough with hemoptysis ICD Codes: R04.2 - Hemoptysis Status: Acute Plan: -See above plan for GI bleed Impression: 11/2016 CTA showed 2 small lung nodules. Significant smoking history Chest CT 06/01 demonstrated 3mm nodule right lung compared with November 2016 exam, no new nodule. Previously identified 5mm nodule not visualized (3) Hypertension ICD Codes: I10 - Essential (primary) hypertension Plan: Impression: Mild HTN during hospitalization -Continue home Lisinopril 40mg daily -Continue Coreg 25mg BID -Consider restarting home amlodipine if persistently hypertensive (4) Anemia ICD Codes: D64.9 - Anemia, unspecified Plan: Impression: Normocytic. Suspected secondary to gastric ulcer. Ferritin 25 , Iron 20 -Daily CBC; transfuse as needed -Plan for iron supplementation at discharge (5) Smoking history ICD Codes: Z87.891 - Personal history of nicotine dependence Plan: Nicotine gum PRN (6) FEN Plan: Fluids: Not indicated at this time. Electrolytes: As needed Nutrition: Regular Basic Diet GI prophylaxis IV Protonix twice a day DVT prophylaxis: SCDs only Problem Qualifiers (1) GI bleed: Qualified Codes: K92.2 - Gastrointestinal hemorrhage, unspecified (2) Hypertension: Qualified Codes: I10 - Essential (primary) hypertension (3) Anemia: Qualified Codes: D64.9 - Anemia, unspecified Yonatan Andrews MD, R3 Jun 04, 2017 10:33
--- NOTE | 2017-06-04 13:35 | HHI.FF ---
Face to Face Verification Diagnosis: (1) GI bleed Physical Therapy Order: Evaluate and Treat, Improve ambulation, Strength and gait training I have seen patient Simone Ngo on 06/04/17. My clinical findings support the need for the requested home health care services because: Deconditioned w/ increased weakness Limited ability to care for self I certify that my clinical findings support that this patient is homebound because: Unsteady gait/balance José Antonio Wynne MD R1 Jun 04, 2017 13:35
--- NOTE | 2017-06-04 17:09 | HHI.DCPOC ---
Discharge Care Plan Diagnosis: (1) GI bleed (2) Symptomatic anemia (3) Hypertension Goals to Promote Your Health * To prevent worsening of your condition and complications * To maintain your health at the optimal level Directions to Meet Your Goals Take your medications as prescribed Follow your dietary instruction Follow activity as directed Keep your appointments as scheduled Take your immunizations and boosters as scheduled If your symptoms worsen call your PCP, if no PCP go to Urgent Care Center or Emergency Room Smoking is Dangerous to Your Health. Avoid second hand smoke Call the 24-hour hour crisis hotline for domestic abuse at José Antonio Wynne MD R1 Jun 04, 2017 17:09
--- NOTE | 2017-06-04 17:09 | HHI.DS ---
Discharge Summary Admission Date May 31, 2017 at 19:07 Admitting Diagnosis GI bleed, symptomatically anemia (1) GI bleed Plan: 06/02: Hgb 6.7; 2 U pRBC transfused 06/03: Post transfusion Hgb 8.6. 06/04: Hgb 9.8. Eating well. No abnormal stools -GI consulted -SILVIA -Await biopsy results -PPI BID -Monitor H/H and transfuse as needed Impression: Presented with Hematemesis and melena. Hemoglobin on admission 8.1 Hemoccult positive. 06/03- Repeat CT Abdomen/Pelvis without acute abnormality EGD 06/01 demonstrated large, deep gastric ulcer about 4cm x4cm. At the edges there was friable tissue but no true visible vessel and no active bleeding. Biopsies were take from the edges of the ulcer. 05/31: CT abdomen/pelvis without IV contrast (05/31) liver cirrhosis without ascites , no acute findings ICD Codes: K92.2 - Gastrointestinal hemorrhage, unspecified Status: Acute (2) Cough with hemoptysis Plan: -See above plan for GI bleed Impression: 11/2016 CTA showed 2 small lung nodules. Significant smoking history Chest CT 06/01 demonstrated 3mm nodule right lung compared with November 2016 exam, no new nodule. Previously identified 5mm nodule not visualized ICD Codes: R04.2 - Hemoptysis Status: Acute (3) Hypertension Plan: Impression: Mild HTN during hospitalization -Continue home Lisinopril 40mg daily -Continue Coreg 25mg BID -Consider restarting home amlodipine if persistently hypertensive ICD Codes: I10 - Essential (primary) hypertension (4) Anemia Plan: Impression: Normocytic. Suspected secondary to gastric ulcer. Ferritin 25 , Iron 20 -Daily CBC; transfuse as needed -Plan for iron supplementation at discharge ICD Codes: D64.9 - Anemia, unspecified (5) Smoking history Plan: Nicotine gum PRN ICD Codes: Z87.891 - Personal history of nicotine dependence (6) FEN Plan: Fluids: Not indicated at this time. Electrolytes: As needed Nutrition: Regular Basic Diet GI prophylaxis IV Protonix twice a day DVT prophylaxis: SCDs only Brief History This is a 71-year-old man with a history of diverticulosis who presents with melena. Patient is a poor historian and is not able to answer certain questions. Patient began interview by stating that earlier this afternoon he felt like he was about to faint-noted dizziness and felt like he couldn't get up. His lower belly felt stiff and painful. The pain improves with eating; this abdominal pain has been going on for a while. He then states that 6 months ago, he was feeling constipated and took a stool softener. He then threw up blood. Today he states that the same thing happened and that he decided to drink milk after coughing up blood. He states that he then started to have diarrhea which appeared black. Stool was hemoccult positive in the ED. Patient also endorses chronic cough, has smoked at least 40 pack years. Drinks 2-3 cans of beer daily. 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 Also reports that he sees a GI doctor. Patient was seen in the ED in November 2016 for an episode of cough with hemoptysis. Besides this complaint, he was otherwise asymptomatic. CTA showed 2 small lung nodules and recommended 6 month follow-up. Patient was discharged with follow-up instructions. Patient was at the ED in 2014 for complaint of 1 day of left abdominal pain. CT scan of the abdomen with contrast showed ascites , diverticula, and thickening of the gallbladder. Patient was advised to decrease alcohol consumption, prescribed with Bentyl and Prevacid, and told to follow-up with his primary care physician. Patient states that he is switching primary care physicians, was not able to name 1. CBC/BMP: 06/04/17 0638 06/04/17 0638 Significant Findings Laboratory Tests Test 06/01/17 21:33 06/02/17 09:15 06/02/17 20:00 06/02/17 20:36 Hemoglobin 7.2 GM/DL (13.0-17.0) 7.4 GM/DL (13.0-17.0) 6.7 GM/DL (13.0-17.0) Hematocrit 21.9 % (39.0-51.0) 22.1 % (39.0-51.0) 20.2 % (39.0-51.0) Red Blood Count 2.63 MIL/MM3 (4.50-5.90) Red Cell Distribution Width 22.1 % (11.6-17.2) Platelet Count 111 TH/MM3 (150-450) Monocytes (%) (Auto) 10.1 % (0.0-8.0) Eosinophils (%) (Auto) 8.0 % (0.0-4.0) Eosinophils # (Auto) 0.5 TH/MM3 (0-0.4) Random Glucose 126 MG/DL (74-106) Albumin 3.0 GM/DL (3.4-5.0) Calcium Level 7.7 MG/DL (8.5-10.1) Sodium Level 132 MEQ/L (136-145) Test 06/03/17 06:31 06/04/17 06:38 Red Blood Count 3.03 MIL/MM3 (4.50-5.90) 3.47 MIL/MM3 (4.50-5.90) Hemoglobin 8.6 GM/DL (13.0-17.0) 9.8 GM/DL (13.0-17.0) Hematocrit 25.5 % (39.0-51.0) 29.0 % (39.0-51.0) Red Cell Distribution Width 20.1 % (11.6-17.2) 19.3 % (11.6-17.2) Platelet Count 112 TH/MM3 (150-450) 105 TH/MM3 (150-450) Random Glucose 113 MG/DL (74-106) Calcium Level 7.6 MG/DL (8.5-10.1) 7.9 MG/DL (8.5-10.1) Sodium Level 131 MEQ/L (136-145) 133 MEQ/L (136-145) Blood Urea Nitrogen 6 MG/DL (7-18) PE at Discharge GENERAL: elderly male. NAD. SKIN: Cool and dry. EYES: Extraocular motions grossly intact. ENT: Throat without erythema or ulcerations. Mucous membranes pink and moist. Uvula midline. Airway patent. CARDIOVASCULAR: Regular rate and rhythm. No LE edema. Normal perfusion RESPIRATORY: Normal rate; CTAB GASTROINTESTINAL: Abdomen soft, non-tender, nondistended. No guarding. MUSCULOSKELETAL: Extremities without edema. No calf tenderness. NEUROLOGICAL: Awake and alert. Normal cranial nerves. Peripheral motor and sensory function grossly within normal limits. Pt Condition on Discharge: Stable Discharge Disposition: Disch w/ Home Health Serv Discharge Instructions DIET: Follow Instructions for: As Tolerated, No Restrictions Activities you can perform: Regular-No Restrictions José Antonio Wynne MD R1 Jun 04, 2017 17:09
[2017-06-04] MEDS ORDERED: PROT40TA PO ×2 (17:16→17:19)
[2017-06-05] VITALS: BP 134/76; PULSE 77; RESP 18; TEMP 98.8; O2SAT 97
[2017-06-05 04:00] VITALS: BP 153/72; PULSE 73; RESP 20; TEMP 98.6; O2SAT 95
[2017-06-05 08:12] VITALS: BP 168/87; PULSE 75; RESP 16; TEMP 97.9; O2SAT 100
[2017-06-05 08:33] LABS: HEMATOCRIT 31.1 % (39.0-51.0); MEAN CELL VOLUME 83.8 FL (80.0-100.0); MEAN CORPUSCULAR HEMOGLOBIN 28.3 PG (27.0-34.0); MEAN CORPUSCULAR HGB CONC 33.8 % (32.0-36.0); PLATELET COUNT 127 TH/MM3 (150-450); RED BLOOD COUNT 3.72 MIL/MM3 (4.50-5.90); RED CELL DISTRIBUTION WIDTH 19.4 % (11.6-17.2); REVIEW FLAG FINAL; WHITE BLOOD COUNT 6.3 TH/MM3 (4.0-11.0)
[2017-06-05] MEDS: PANTOPRAZOLE SODIUM 40 MG VIAL IV PUSH SCH (08:40)
[2017-06-05] MEDS: LISINOPRIL 20 MG TAB PO SCH (08:40)
[2017-06-05] MEDS: CARVEDILOL 12.5 MG TAB PO SCH (08:40)
[2017-06-05] MEDS: SODIUM CHLORIDE 0.9% FLUSH 10 ML FLUSH IV FLUSH SCH (08:41)
== END 2017-06-05 09:50 | disposition home health service (06) | DRG 378 ==
LOC: NEPE 17:32 → NEDA 19:07 → N05A 21:59
PROVIDERS: ADMIT Family Medicine; ATTEND Family Medicine
PROC: 0DB68ZX Excision of Stomach, Via Natural or Artificial Opening Endoscopic, Diagnostic (ICD-10-PCS; principal; 2017-06-01 13:05)
PROC: 30233N1 Transfusion of Nonautologous Red Blood Cells into Peripheral Vein, Percutaneous Approach (ICD-10-PCS; 2017-06-03)
DX: K25.4 Chronic or unspecified gastric ulcer with hemorrhage (principal); R04.2 Hemoptysis; K74.60 Unspecified cirrhosis of liver; D64.9 Anemia, unspecified; Z72.89 Other problems related to lifestyle; I10 Essential (primary) hypertension; F17.210 Nicotine dependence, cigarettes, uncomplicated; R05 Cough; Z95.0 Presence of cardiac pacemaker; R91.8 Other nonspecific abnormal finding of lung field; K57.90 Diverticulosis of intestine, part unspecified, without perforation or abscess without bleeding; Z23 Encounter for immunization
CPT/HCPCS: 36430; 71010; 71250; 74176; 74177; 80048; 80053; 82728; 83540; 83690; 85014; 85018; 85025; 85027; 85610; 85730; 86077; 86850; 86870; 86900; 86901; 86902; 86920; 86921; 86922; 87493; 88305; 90686; 90732; 93005; 94150; 96360; C9113; J2370; J7030; P9016; Q2038; Q9963; Q9967